=== PATIENT | male | born 1970 | race Caucasian/White ===

== ENCOUNTER 2020-09-27 17:00 | Inpatient (IN) ==
[2020-09-27 18:11] LABS: VBG HCO3 50 mEq/L (21-27); VBG PCO2 114 mmHg (41-51); VBG PH 7.25 pH Units (7.32-7.42); VBG PO2 140 mmHg (25-50)
[2020-09-27 18:14] LABS: VBG HCO3 51 mEq/L (21-27); VBG PCO2 124 mmHg (41-51); VBG PH 7.22 pH Units (7.32-7.42); VBG PO2 113 mmHg (25-50)
[2020-09-27 18:37] LABS: Hemoglobin 13.1 g/dL (12.9-16.9)
[2020-09-27 18:38] LABS: Basophils % 0.5 %; Eosinophils # 0.1 K/mcL (0.0-0.6); Eosinophils % 0.7 %; Hematocrit 45.9 % (37.5-50.1); Immature Granulocytes % 2.2 % (0-4); Lymphocytes # 1.2 K/mcL (0.6-4.6); Lymphocytes % 14.3 %; Mean Corpuscular HGB Conc 28.5 g/dL (31.6-35.5); Mean Corpuscular Hemoglobin 29.3 pg (28.0-33.3); Mean Corpuscular Volume 102.7 fL (83.0-100.0); Mean Platelet Volume 8.8 fL (9.4-12.4); Monocytes # 0.6 K/mcL (0.0-1.3); Platelet Count 208 K/mcL (140-400); Red Blood Count 4.47 M/mcL (4.19-5.50); Red Cell Distribution Width 12.7 % (11.5-14.5); Segmented Neutrophils % 75.3 %; White Blood Count 8.3 K/mcL (4.3-11.1)
[2020-09-27 18:38] LABS: Bilirubin,Urine Negative (Negative); Blood,Urine Negative (Negative); Clarity,Urine Clear (Clear); Color,Urine Light-Yellow (Yellow); Glucose,Urine (UA) Normal (Normal); Ketones,Urine Negative (Negative); Leukocyte Esterase,Urine Negative (Negative); Nitrite,Urine Negative (Negative); PH,Urine 5.5 pH Units (5.0-8.0); Protein,Urine Negative (Neg-Trace); Specific Gravity,Urine 1.015 (1.010-1.025); Urobilinogen,Urine Normal (Normal)
[2020-09-27 18:40] LABS: Neutrophils # 6.3 K/mcL (1.6-8.9)
[2020-09-27 18:48] LABS: Amphetamine Screen,Urine Negative ng/mL (Cutoff=1000); Barbiturate Screen,Urine Negative ng/mL (Cutoff=200); Benzodiazepines Screen,Urine Negative ng/mL (Cutoff=200); Cannabinoid Screen,Urine Negative ng/mL (Cutoff = 50); Cocaine Screen,Urine Negative ng/mL (Cutoff= 300); Opiate Screen,Urine Negative ng/mL (Cutoff=300); Phencyclidine Screen,Urine Negative ng/mL (Cutoff=25)
[2020-09-27 18:53] LABS: Stomatocytes 1+ (Not Present)
[2020-09-27 18:54] LABS: Hypochromasia Present (Not Present); Platelet Estimate Normal (Normal)
[2020-09-27 19:03] LABS: Alanine Aminotransferase 27 Units/L (7-52); Albumin/Globulin Ratio 1.4 (1.1-2.2); Alkaline Phosphatase 53 Units/L (34-104); Aspartate Amino Transferase 17 Units/L (13-39); BUN/Creatinine Ratio 39 (6-26); Bilirubin,Direct 0.1 mg/dL (0.0-0.2); Bilirubin,Indirect 0.1 mg/dL (0.0-1.0); Bilirubin,Total 0.2 mg/dL (0.3-1.0); Blood Urea Nitrogen 17 mg/dL (6-20); Calcium 9.2 mg/dL (8.6-10.3); Carbon Dioxide > 45 mEq/L (23-29); Chloride 95 mEq/L (98-107); Ethanol < 10 mg/dL (Less than 10); Globulin 2.8 g/dL (2.4-3.5); Glucose 151 mg/dL (70-105); Osmolality,Calculated 298 (280-300); Potassium 4.9 mEq/L (3.5-5.1); Sodium 142 mEq/L (136-145); Total Protein 6.8 g/dL (6.4-8.9); Troponin I < 0.03 ng/mL (< 0.04); Valproate 33 mcg/mL (50-100); eGFR For African Americans > 60 (> 60); eGFR For Non-African Americans > 60 (> 60)
[2020-09-27] MEDS ORDERED: Furosemide 40 MG/4 ML VIAL IVP ONE (19:08)
[2020-09-27] MEDS ORDERED: Nitroglycerin 0.4 MG TAB.SUBL SL STA (19:08)
[2020-09-27 20:33] LABS: VBG HCO3 47 mEq/L (21-27); VBG PCO2 97 mmHg (41-51); VBG PH 7.29 pH Units (7.32-7.42); VBG PO2 212 mmHg (25-50)
[2020-09-27] MEDS ORDERED: Ondansetron 4 MG/2 ML VIAL IVP PRN (21:05)
[2020-09-27] MEDS ORDERED: Naloxone 0.4 MG/ML INJ IVP PRN (21:05)
[2020-09-27] MEDS ORDERED: Acetaminophen 325 MG TABLET PO PRN (21:05)
[2020-09-28] MEDS ORDERED: Acetaminophen 325 MG TABLET PO PRN (00:45)
[2020-09-28 01:22] LABS: Prothrombin Time 11.1 Seconds (9.4-12.1)
[2020-09-28 01:33] LABS: ABG Base Excess 19 mEq/L (-2 to 3); ABG HCO3 53 mEq/L (21-27); ABG Oxygen Saturation 91 % (95-98); ABG PCO2 123 mmHg (35-45); ABG PH 7.24 pH Units (7.32-7.45); ABG PO2 78 mmHg (85-104); ABG TCO2 > 50 mEq/L (20-26)
[2020-09-28 01:38] LABS: Mean Corpuscular Volume 101.8 fL (83.0-100.0); Mean Platelet Volume 8.5 fL (9.4-12.4)
[2020-09-28 01:39] LABS: BUN/Creatinine Ratio 34 (6-26); Blood Urea Nitrogen 16 mg/dL (6-20); Calcium 9.1 mg/dL (8.6-10.3); Carbon Dioxide > 45 mEq/L (23-29); Chloride 91 mEq/L (98-107); Glucose 126 mg/dL (70-105); Magnesium 2.1 mg/dL (1.6-2.6); Osmolality,Calculated 299 (280-300); Potassium 4.6 mEq/L (3.5-5.1); Sodium 143 mEq/L (136-145); eGFR For African Americans > 60 (> 60); eGFR For Non-African Americans > 60 (> 60)
[2020-09-28 01:40] LABS: Basophils # 0.1 K/mcL (0.0-0.2); Basophils % 0.7 %; Eosinophils # 0.1 K/mcL (0.0-0.6); Eosinophils % 0.7 %; Hematocrit 45.8 % (37.5-50.1); Immature Granulocytes % 2.2 % (0-4); Lymphocytes # 1.1 K/mcL (0.6-4.6); Lymphocytes % 14.5 %; Mean Corpuscular HGB Conc 28.4 g/dL (31.6-35.5); Mean Corpuscular Hemoglobin 28.9 pg (28.0-33.3); Monocytes # 0.5 K/mcL (0.0-1.3); Monocytes % 6.3 %; Neutrophils # 5.8 K/mcL (1.6-8.9); Platelet Count 210 K/mcL (140-400); Red Cell Distribution Width 12.7 % (11.5-14.5); Segmented Neutrophils % 75.6 %; White Blood Count 7.6 K/mcL (4.3-11.1)
[2020-09-28] MEDS ORDERED: Lactulose 200 GM, Sodium Chloride IRRigation 700 ML RC ONE (01:42)
[2020-09-28 01:56] LABS: Platelet Estimate Normal (Normal); Polychromasia 1+ (Not Present)
[2020-09-28 04:16] LABS: ABG Base Excess 20 mEq/L (-2 to 3); ABG HCO3 53 mEq/L (21-27); ABG Oxygen Saturation 91 % (95-98); ABG PCO2 106 mmHg (35-45); ABG PH 7.31 pH Units (7.32-7.45); ABG PO2 75 mmHg (85-104); ABG TCO2 > 50 mEq/L (20-26)
[2020-09-28] MEDS ORDERED: Dexmedetomidine HCl 400 MCG/100 ML MLS IVC ONE (04:40)
[2020-09-28] MEDS: Dexmedetomidine HCl 400 MCG/100 ML MLS IVC SCH ×3 (04:45→11:35)
[2020-09-28 05:04] LABS: Mean Corpuscular Volume 101.8 fL (83.0-100.0); Mean Platelet Volume 8.7 fL (9.4-12.4)
[2020-09-28 05:05] LABS: Hematocrit 45.2 % (37.5-50.1); Hemoglobin 12.6 g/dL (12.9-16.9); Mean Corpuscular HGB Conc 27.9 g/dL (31.6-35.5); Mean Corpuscular Hemoglobin 28.4 pg (28.0-33.3); Platelet Count 230 K/mcL (140-400); Red Blood Count 4.44 M/mcL (4.19-5.50); Red Cell Distribution Width 12.7 % (11.5-14.5); White Blood Count 9.2 K/mcL (4.3-11.1)
[2020-09-28 05:33] LABS: Alanine Aminotransferase 28 Units/L (7-52); Albumin 3.9 g/dL (3.5-5.7); Albumin/Globulin Ratio 1.3 (1.1-2.2); Alkaline Phosphatase 52 Units/L (34-104); Aspartate Amino Transferase 16 Units/L (13-39); BUN/Creatinine Ratio 33 (6-26); Bilirubin,Indirect 0.3 mg/dL (0.0-1.0); Bilirubin,Total 0.3 mg/dL (0.3-1.0); Blood Urea Nitrogen 17 mg/dL (6-20); Calcium 9.3 mg/dL (8.6-10.3); Carbon Dioxide > 45 mEq/L (23-29); Chloride 92 mEq/L (98-107); Globulin 2.9 g/dL (2.4-3.5); Glucose 127 mg/dL (70-105); Osmolality,Calculated 305 (280-300); Potassium 4.4 mEq/L (3.5-5.1); Sodium 146 mEq/L (136-145); Total Protein 6.8 g/dL (6.4-8.9); eGFR For African Americans > 60 (> 60); eGFR For Non-African Americans > 60 (> 60)
[2020-09-28] MEDS ORDERED: 0.9 % Sodium Chloride 1,000 ML IVC SCH (06:15)
[2020-09-28 06:46] LABS: Magnesium 2.1 mg/dL (1.6-2.6)
[2020-09-28] MEDS ORDERED: Acyclovir 700 MG in D5% in Water 250 ML IVPB SCH (08:00)
[2020-09-28] MEDS: Acyclovir 700 MG in D5% in Water 250 ML IVPB SCH ×3 (08:36→23:19)
[2020-09-28] MEDS ORDERED: Lactulose Oral Soln 20 GM/30 ML UDC PO SCH (09:00)
[2020-09-28] MEDS ORDERED: Furosemide 40 MG TABLET PO SCH (09:00)
[2020-09-28] MEDS ORDERED: SALMETEROL IH SCH (09:00)
[2020-09-28] MEDS ORDERED: FLUTICASONE PROPION IH SCH (09:00)
[2020-09-28] MEDS ORDERED: Divalproex (12 HR) 250 MG TABLET PO PRN (09:00)
[2020-09-28] MEDS: clonazePAM 0.5 MG TABLET PO SCH ×2 (09:28→19:38)
[2020-09-28] MEDS: Topiramate 25 MG TABLET PO SCH (09:28)
[2020-09-28] MEDS: amLODIPine 5 MG TABLET PO SCH (09:28)
[2020-09-28] MEDS: Lactobacillus 1 EACH CAP.SPRINK PO SCH (09:28)
[2020-09-28] MEDS ORDERED: Furosemide 40 MG/4 ML VIAL IVP ONE (10:12)
[2020-09-28] MEDS ORDERED: Dextrose Gel 15 GM/37.5 ML TUBE PO PRN ×2 (14:04)
[2020-09-28] MEDS ORDERED: *HR* Dextrose 50 % in Water (Vial) 50 ML VIAL IVP PRN (14:04)
[2020-09-28] MEDS ORDERED: D5% in Water 1,000 ML IVC PRN (14:04)
[2020-09-28] MEDS ORDERED: Haloperidol Lactate 5 MG/ML VIAL ONE (14:50)
[2020-09-28] MEDS ORDERED: Haloperidol Lactate 5 MG/ML VIAL IM ONE (14:54)
[2020-09-28] MEDS ORDERED: *HR* LORazepam 2 MG/ML VIAL IVP ONE ×2 (15:14→15:20)
[2020-09-28] MEDS ORDERED: Valproic Acid INJ 500 MG in 0.9 % Sodium Chloride 100 ML IVPB ONE (15:30)
[2020-09-28] MEDS ORDERED: Artificial Tears SOLN 15 ML BOTTLE BOTH EYES PRN (15:32)
[2020-09-28] MEDS: Norepinephrine 4 MG/254 ML IV.SOLN IVC SCH (15:48)
[2020-09-28] MEDS: Midazolam HCl 50 MG/100 ML IV.SOLN IVC SCH ×2 (15:48→22:10)
[2020-09-28] MEDS ORDERED: *HR* Propofol 200 MG/20 ML VIAL IVP ONE (16:09)
[2020-09-28] MEDS ORDERED: *HR* Midazolam HCl 5 MG/5 ML VIAL IVP ONE (16:09)
[2020-09-28] MEDS ORDERED: *HR* Rocuronium Bromide 50 MG/5 ML VIAL ONE (16:09)
[2020-09-28] MEDS ORDERED: *HR* Succinylcholine 200 MG/10 ML VIAL IVP ONE (16:09)
[2020-09-28] MEDS ORDERED: Lidocaine -MPF 2% 2 ML VIAL ONE (16:09)
[2020-09-28] MEDS: FentaNYL (PF) 1,000 MCG/100 ML IV.SOLN IVC SCH ×2 (16:22→20:52)
[2020-09-28] MEDS: Artificial Tears SOLN 15 ML BOTTLE BOTH EYES SCH ×3 (16:24→23:17)
[2020-09-28] MEDS: Cefepime HCl 2,000 MG in Water for inj. (sterile) 20 ML IVP SCH ×2 (16:51→23:17)
[2020-09-28] MEDS: Doxycycline 100 MG in 0.9 % Sodium Chloride Mini Bag 100 ML IVPB SCH (16:52)
[2020-09-28 17:06] LABS: ABG Base Excess 27 mEq/L (-2 to 3); ABG HCO3 62 mEq/L (21-27); ABG Oxygen Saturation 83 % (95-98); ABG PCO2 119 mmHg (35-45); ABG PH 7.33 pH Units (7.32-7.45); ABG PO2 58 mmHg (85-104); ABG TCO2 > 50 mEq/L (20-26); Blood Gas Modality ASSIST CONTROL; Blood Gas VT 500 cc
[2020-09-28] MEDS ORDERED: Nystatin SUSP 5 ML UD.LIQ PO PRN (17:22)
[2020-09-28] MEDS: Pantoprazole 40 MG VIAL IVP SCH (17:50)
[2020-09-28] MEDS: Insulin LISPRO 300 UNITS/3 ML VIAL SUBQ SCH ×2 (17:50→23:20)
[2020-09-28] MEDS: Valproic Acid Oral Soln 250 MG/5 ML UDC GTUBE SCH (19:38)
[2020-09-28] MEDS: Chlorhexidine Rinse 15 ML MOUTHWASH MM SCH (19:38)
[2020-09-28] MEDS: Budesonide/Formoterol 160/4.5 1 PUFF INH IH SCH (20:02)
[2020-09-28 20:54] LABS: ABG Base Excess 26 mEq/L (-2 to 3); ABG HCO3 52 mEq/L (21-27); ABG Oxygen Saturation 99 % (95-98); ABG PCO2 56 mmHg (35-45); ABG PH 7.58 pH Units (7.32-7.45); ABG PO2 134 mmHg (85-104); ABG TCO2 > 50 mEq/L (20-26); Blood Gas Modality ASSIST CONTROL; Blood Gas VT 500 cc
[2020-09-28] MEDS ORDERED: Divalproex (12 HR) 250 MG TABLET PO SCH (21:00)
[2020-09-28] MEDS: *HR* Heparin 5,000 UNIT/ML VIAL SQ SCH (21:10)
[2020-09-29] MEDS: FentaNYL (PF) 1,000 MCG/100 ML IV.SOLN IVC SCH ×3 (02:37→15:19)
[2020-09-29 04:07] LABS: Basophils % 0.4 %; Eosinophils # 0.1 K/mcL (0.0-0.6); Hemoglobin 12.2 g/dL (12.9-16.9); Immature Granulocytes % 1.1 % (0-4); Lymphocytes # 1.5 K/mcL (0.6-4.6); Lymphocytes % 16.8 %; Mean Corpuscular HGB Conc 29.8 g/dL (31.6-35.5); Mean Corpuscular Hemoglobin 29.4 pg (28.0-33.3); Mean Corpuscular Volume 98.8 fL (83.0-100.0); Monocytes # 0.8 K/mcL (0.0-1.3); Monocytes % 8.4 %; Neutrophils # 6.6 K/mcL (1.6-8.9); Platelet Count 238 K/mcL (140-400); Red Blood Count 4.15 M/mcL (4.19-5.50); Red Cell Distribution Width 12.9 % (11.5-14.5); Segmented Neutrophils % 72.3 %; White Blood Count 9.1 K/mcL (4.3-11.1)
[2020-09-29 04:22] LABS: VBG Ionized Calcium 1.03 mmol/L (1.15-1.35)
[2020-09-29] MEDS: Artificial Tears SOLN 15 ML BOTTLE BOTH EYES SCH ×5 (04:29→19:19)
[2020-09-29 04:46] LABS: ABG Base Excess 28 mEq/L (-2 to 3); ABG HCO3 57 mEq/L (21-27); ABG Oxygen Saturation 92 % (95-98); ABG PCO2 67 mmHg (35-45); ABG PH 7.54 pH Units (7.32-7.45); ABG PO2 60 mmHg (85-104); ABG TCO2 > 50 mEq/L (20-26); Blood Gas Modality ASSIST CONTROL; Blood Gas VT 500 cc
[2020-09-29 05:57] LABS: BUN/Creatinine Ratio 25 (6-26); Blood Urea Nitrogen 18 mg/dL (6-20); Calcium 9.2 mg/dL (8.6-10.3); Carbon Dioxide > 45 mEq/L (23-29); Chloride 89 mEq/L (98-107); Glucose 107 mg/dL (70-105); Magnesium 1.8 mg/dL (1.6-2.6); Osmolality,Calculated 292 (280-300); Phosphorous < 1.0 mg/dL (2.7-4.5); Potassium 3.9 mEq/L (3.5-5.1); Sodium 140 mEq/L (136-145); eGFR For African Americans > 60 (> 60); eGFR For Non-African Americans > 60 (> 60)
[2020-09-29] MEDS: Doxycycline 100 MG in 0.9 % Sodium Chloride Mini Bag 100 ML IVPB SCH ×2 (05:58→16:31)
[2020-09-29] MEDS: *HR* Heparin 5,000 UNIT/ML VIAL SQ SCH ×3 (05:58→22:51)
[2020-09-29] MEDS: Insulin LISPRO 300 UNITS/3 ML VIAL SUBQ SCH ×3 (06:07→18:34)
[2020-09-29] MEDS ORDERED: Calcium Gluconate 1gm/50mL 1 GM/50 ML BAG IVPB ONE ×2 (06:08→15:49)
[2020-09-29] MEDS: Midazolam HCl 50 MG/100 ML IV.SOLN IVC SCH ×3 (07:00→22:51)
[2020-09-29] MEDS ORDERED: acetaZOLAMIDE 500 MG in Water for inj. (sterile) 5 ML IVP ONE (07:05)
[2020-09-29] MEDS ORDERED: Potassium Phosphate 44 MEQ in 0.9 % Sodium Chloride 250 ML IVPB ONE (07:16)
[2020-09-29] MEDS ORDERED: Vancomycin 2,000 MG/520 ML IV.SOLN IVPB ONE (07:23)
[2020-09-29] MEDS: Budesonide/Formoterol 160/4.5 1 PUFF INH IH SCH ×2 (07:55→19:50)
[2020-09-29] MEDS: Cefepime HCl 2,000 MG in Water for inj. (sterile) 20 ML IVP SCH ×2 (08:37→16:31)
[2020-09-29] MEDS: Lactobacillus 1 EACH CAP.SPRINK PO SCH (08:38)
[2020-09-29] MEDS: amLODIPine 5 MG TABLET PO SCH (08:38)
[2020-09-29] MEDS: Chlorhexidine Rinse 15 ML MOUTHWASH MM SCH ×2 (08:38→19:19)
[2020-09-29] MEDS: clonazePAM 0.5 MG TABLET PO SCH ×2 (08:38→19:18)
[2020-09-29] MEDS: Valproic Acid Oral Soln 250 MG/5 ML UDC GTUBE SCH ×2 (08:39→19:18)
[2020-09-29] MEDS: Pantoprazole 40 MG VIAL IVP SCH (08:39)
[2020-09-29] MEDS: Topiramate 25 MG TABLET PO SCH (08:46)
[2020-09-29] MEDS: Acyclovir 700 MG in D5% in Water 250 ML IVPB SCH ×2 (08:46→16:30)
[2020-09-29 14:40] LABS: VBG Ionized Calcium 1.08 mmol/L (1.15-1.35)
[2020-09-29 15:06] LABS: BUN/Creatinine Ratio 24 (6-26); Blood Urea Nitrogen 16 mg/dL (6-20); Calcium 8.7 mg/dL (8.6-10.3); Carbon Dioxide 43 mEq/L (23-29); Chloride 92 mEq/L (98-107); Glucose 110 mg/dL (70-105); Magnesium 1.9 mg/dL (1.6-2.6); Osmolality,Calculated 290 (280-300); Phosphorous 3.3 mg/dL (2.7-4.5); Potassium 3.2 mEq/L (3.5-5.1); Sodium 139 mEq/L (136-145); eGFR For African Americans > 60 (> 60); eGFR For Non-African Americans > 60 (> 60)
[2020-09-29] MEDS ORDERED: Potassium Chloride Elixir 20 MEQ/15 ML UDC PO ONE (15:50)
[2020-09-29] MEDS: Vancomycin 2,000 MG/520 ML IV.SOLN IVPB SCH (19:20)
[2020-09-29] MEDS: Thiamine (B-1) 100 MG in 0.9 % Sodium Chloride 50 ML IVPB SCH (19:21)
[2020-09-29] MEDS: FentaNYL (PF) 2,500 MCG/50 ML IV.SOLN IVC SCH (20:15)
[2020-09-30] MEDS: Acyclovir 700 MG in D5% in Water 250 ML IVPB SCH ×4 (00:39→23:17)
[2020-09-30] MEDS: Cefepime HCl 2,000 MG in Water for inj. (sterile) 20 ML IVP SCH ×4 (00:39→23:20)
[2020-09-30] MEDS: Artificial Tears SOLN 15 ML BOTTLE BOTH EYES SCH ×7 (00:39→23:23)
[2020-09-30] MEDS: Insulin LISPRO 300 UNITS/3 ML VIAL SUBQ SCH ×5 (00:40→23:56)
[2020-09-30 04:03] LABS: VBG Ionized Calcium 1.05 mmol/L (1.15-1.35)
[2020-09-30 04:08] LABS: Hematocrit 41.4 % (37.5-50.1); Hemoglobin 12.4 g/dL (12.9-16.9); Mean Corpuscular Hemoglobin 28.4 pg (28.0-33.3); Mean Platelet Volume 8.7 fL (9.4-12.4); Platelet Count 213 K/mcL (140-400); Red Blood Count 4.36 M/mcL (4.19-5.50); Red Cell Distribution Width 13.3 % (11.5-14.5); White Blood Count 9.1 K/mcL (4.3-11.1)
[2020-09-30 04:09] LABS: ABG Base Excess 11 mEq/L (-2 to 3); ABG HCO3 40 mEq/L (21-27); ABG Oxygen Saturation 92 % (95-98); ABG PCO2 70 mmHg (35-45); ABG PH 7.37 pH Units (7.32-7.45); ABG PO2 71 mmHg (85-104); ABG TCO2 43 mEq/L (20-26); Blood Gas Modality ASSIST CONTROL; Blood Gas VT 500 cc
[2020-09-30 04:28] LABS: BUN/Creatinine Ratio 21 (6-26); Blood Urea Nitrogen 14 mg/dL (6-20); Calcium 8.6 mg/dL (8.6-10.3); Carbon Dioxide 39 mEq/L (23-29); Chloride 94 mEq/L (98-107); Glucose 127 mg/dL (70-105); Magnesium 2.1 mg/dL (1.6-2.6); Osmolality,Calculated 284 (280-300); Phosphorous 3.2 mg/dL (2.7-4.5); Potassium 3.6 mEq/L (3.5-5.1); Sodium 136 mEq/L (136-145); eGFR For African Americans > 60 (> 60); eGFR For Non-African Americans > 60 (> 60)
[2020-09-30] MEDS: FentaNYL (PF) 2,500 MCG/50 ML IV.SOLN IVC SCH ×2 (04:44→17:12)
[2020-09-30] MEDS: *HR* Heparin 5,000 UNIT/ML VIAL SQ SCH ×3 (05:53→20:25)
[2020-09-30] MEDS: Doxycycline 100 MG in 0.9 % Sodium Chloride Mini Bag 100 ML IVPB SCH ×2 (05:53→16:54)
[2020-09-30] MEDS: Potassium Chloride 40 MEQ/200 ML BAG IVPB PRN (05:53)
[2020-09-30] MEDS: Calcium Gluconate 1gm/50mL 1 GM/50 ML BAG IVPB PRN (05:53)
[2020-09-30] MEDS: Budesonide/Formoterol 160/4.5 1 PUFF INH IH SCH ×2 (08:02→19:38)
[2020-09-30] MEDS: Midazolam HCl 50 MG/100 ML IV.SOLN IVC SCH ×2 (08:15→21:27)
[2020-09-30] MEDS: Pantoprazole 40 MG VIAL IVP SCH (08:38)
[2020-09-30] MEDS: Chlorhexidine Rinse 15 ML MOUTHWASH MM SCH ×2 (08:39→20:25)
[2020-09-30] MEDS: Valproic Acid Oral Soln 250 MG/5 ML UDC GTUBE SCH ×2 (08:39→20:25)
[2020-09-30] MEDS: Topiramate 25 MG TABLET PO SCH (08:39)
[2020-09-30] MEDS: amLODIPine 5 MG TABLET PO SCH (08:39)
[2020-09-30] MEDS: clonazePAM 0.5 MG TABLET PO SCH ×2 (08:39→20:24)
[2020-09-30] MEDS: Lactobacillus 1 EACH CAP.SPRINK PO SCH (08:39)
[2020-09-30] MEDS: Vancomycin 2,000 MG/520 ML IV.SOLN IVPB SCH (08:50)
[2020-09-30] MEDS: Thiamine (B-1) 100 MG in 0.9 % Sodium Chloride 50 ML IVPB SCH ×2 (08:51→21:00)
[2020-09-30] MEDS: Vancomycin 1,250 MG/262.5 ML IV.SOLN IVPB SCH (21:22)
[2020-09-30] MEDS: Norepinephrine 4 MG/254 ML IV.SOLN IVC SCH ×2 (23:52→23:54)
[2020-09-30] MEDS: Dexmedetomidine HCl 400 MCG/100 ML MLS IVC SCH ×2 (23:53→23:54)
[2020-10-01] MEDS: Artificial Tears SOLN 15 ML BOTTLE BOTH EYES SCH ×5 (03:23→20:35)
[2020-10-01 03:56] LABS: BUN/Creatinine Ratio 33 (6-26); Blood Urea Nitrogen 17 mg/dL (6-20); Calcium 8.8 mg/dL (8.6-10.3); Carbon Dioxide 41 mEq/L (23-29); Chloride 94 mEq/L (98-107); Glucose 140 mg/dL (70-105); Osmolality,Calculated 288 (280-300); Potassium 4.2 mEq/L (3.5-5.1); Sodium 137 mEq/L (136-145); eGFR For African Americans > 60 (> 60); eGFR For Non-African Americans > 60 (> 60)
[2020-10-01 04:00] LABS: Red Cell Distribution Width 13.2 % (11.5-14.5)
[2020-10-01 04:02] LABS: Basophils % 0.4 %; Eosinophils # 0.1 K/mcL (0.0-0.6); Eosinophils % 1.3 %; Hemoglobin 12.3 g/dL (12.9-16.9); Immature Granulocytes % 0.6 % (0-4); Immature Platelets 2.2 % (1.1-6.1); Lymphocytes # 0.7 K/mcL (0.6-4.6); Lymphocytes % 6.8 %; Mean Corpuscular Hemoglobin 28.5 pg (28.0-33.3); Mean Corpuscular Volume 95.1 fL (83.0-100.0); Mean Platelet Volume 9.2 fL (9.4-12.4); Monocytes # 0.4 K/mcL (0.0-1.3); Monocytes % 4.3 %; Neutrophils # 8.6 K/mcL (1.6-8.9); Platelet Count 217 K/mcL (140-400); Red Blood Count 4.31 M/mcL (4.19-5.50); Segmented Neutrophils % 86.6 %; White Blood Count 9.9 K/mcL (4.3-11.1)
[2020-10-01 04:28] LABS: Platelet Clumps Few (Not Present); Platelet Estimate Normal (Normal)
[2020-10-01 05:05] LABS: ABG Base Excess 9 mEq/L (-2 to 3); ABG HCO3 38 mEq/L (21-27); ABG Oxygen Saturation 93 % (95-98); ABG PCO2 75 mmHg (35-45); ABG PH 7.32 pH Units (7.32-7.45); ABG PO2 77 mmHg (85-104); ABG TCO2 41 mEq/L (20-26); Blood Gas VT 500 cc
[2020-10-01] MEDS: Vancomycin 1,250 MG/262.5 ML IV.SOLN IVPB SCH ×3 (05:46→20:36)
[2020-10-01] MEDS: Doxycycline 100 MG in 0.9 % Sodium Chloride Mini Bag 100 ML IVPB SCH ×2 (05:47→18:19)
[2020-10-01] MEDS: *HR* Heparin 5,000 UNIT/ML VIAL SQ SCH ×3 (05:47→22:04)
[2020-10-01] MEDS: Insulin LISPRO 300 UNITS/3 ML VIAL SUBQ SCH ×3 (05:48→18:24)
[2020-10-01] MEDS: Budesonide/Formoterol 160/4.5 1 PUFF INH IH SCH ×2 (07:44→19:58)
[2020-10-01] MEDS: Thiamine (B-1) 100 MG in 0.9 % Sodium Chloride 50 ML IVPB SCH ×2 (08:09→20:35)
[2020-10-01] MEDS: Acyclovir 700 MG in D5% in Water 250 ML IVPB SCH ×2 (08:11→16:48)
[2020-10-01] MEDS: Cefepime HCl 2,000 MG in Water for inj. (sterile) 20 ML IVP SCH ×2 (08:17→16:53)
[2020-10-01] MEDS: clonazePAM 0.5 MG TABLET PO SCH ×2 (08:29→20:35)
[2020-10-01] MEDS: Lactobacillus 1 EACH CAP.SPRINK PO SCH (08:29)
[2020-10-01] MEDS: Chlorhexidine Rinse 15 ML MOUTHWASH MM SCH ×2 (08:29→20:35)
[2020-10-01] MEDS: Valproic Acid Oral Soln 250 MG/5 ML UDC GTUBE SCH ×2 (08:29→20:35)
[2020-10-01] MEDS: Topiramate 25 MG TABLET PO SCH (08:30)
[2020-10-01] MEDS: amLODIPine 5 MG TABLET PO SCH (08:30)
[2020-10-01] MEDS: Pantoprazole 40 MG VIAL IVP SCH (08:31)
[2020-10-01 09:31] LABS: Albumin 3.3 g/dL (3.5-5.7); Albumin/Globulin Ratio 1.1 (1.1-2.2); Bilirubin,Indirect 0.4 mg/dL (0.0-1.0); Bilirubin,Total 0.4 mg/dL (0.3-1.0); Globulin 2.9 g/dL (2.4-3.5); Total Protein 6.2 g/dL (6.4-8.9)
[2020-10-01] MEDS ORDERED: Furosemide 40 MG/4 ML VIAL IVP ONE (11:16)
[2020-10-01] MEDS: Dexmedetomidine HCl 400 MCG/100 ML MLS IVC SCH ×2 (11:29→18:43)
[2020-10-01] MEDS: Norepinephrine 4 MG/254 ML IV.SOLN IVC SCH (16:47)
[2020-10-01] MEDS: Docusate Oral Soln 100 MG/10 ML UDC GTUBE SCH (20:35)
[2020-10-01] MEDS: FentaNYL (PF) 2,500 MCG/50 ML IV.SOLN IVC SCH (20:36)
[2020-10-02] MEDS: Artificial Tears SOLN 15 ML BOTTLE BOTH EYES SCH ×7 (00:05→23:59)
[2020-10-02] MEDS: Cefepime HCl 2,000 MG in Water for inj. (sterile) 20 ML IVP SCH ×4 (00:05→23:56)
[2020-10-02] MEDS: Insulin LISPRO 300 UNITS/3 ML VIAL SUBQ SCH ×5 (00:06→23:58)
[2020-10-02] MEDS: Acyclovir 700 MG in D5% in Water 250 ML IVPB SCH ×3 (00:10→15:48)
[2020-10-02 03:41] LABS: VBG Ionized Calcium 1.12 mmol/L (1.15-1.35)
[2020-10-02 03:44] LABS: Basophils % 0.5 %; Eosinophils # 0.4 K/mcL (0.0-0.6); Eosinophils % 5.6 %; Hematocrit 38.7 % (37.5-50.1); Hemoglobin 11.4 g/dL (12.9-16.9); Immature Granulocytes % 0.8 % (0-4); Mean Corpuscular HGB Conc 29.5 g/dL (31.6-35.5); Mean Corpuscular Hemoglobin 28.6 pg (28.0-33.3); Mean Platelet Volume 9.3 fL (9.4-12.4); Monocytes # 0.3 K/mcL (0.0-1.3); Monocytes % 5.2 %; Neutrophils # 4.8 K/mcL (1.6-8.9); Platelet Count 194 K/mcL (140-400); Red Blood Count 3.99 M/mcL (4.19-5.50); Red Cell Distribution Width 13.1 % (11.5-14.5); Segmented Neutrophils % 72.9 %; White Blood Count 6.6 K/mcL (4.3-11.1)
[2020-10-02 03:59] LABS: Magnesium 1.9 mg/dL (1.6-2.6); Phosphorous 3.1 mg/dL (2.7-4.5)
[2020-10-02 04:37] LABS: ABG Base Excess 13 mEq/L (-2 to 3); ABG HCO3 43 mEq/L (21-27); ABG Oxygen Saturation 90 % (95-98); ABG PCO2 87 mmHg (35-45); ABG PO2 70 mmHg (85-104); ABG TCO2 46 mEq/L (20-26); Blood Gas Modality ASSIST CONTROL; Blood Gas VT 500 cc
[2020-10-02 05:06] LABS: BUN/Creatinine Ratio 33 (6-26); Blood Urea Nitrogen 16 mg/dL (6-20); Calcium 8.6 mg/dL (8.6-10.3); Carbon Dioxide 39 mEq/L (23-29); Chloride 96 mEq/L (98-107); Glucose 150 mg/dL (70-105); Osmolality,Calculated 292 (280-300); Potassium 3.6 mEq/L (3.5-5.1); Sodium 139 mEq/L (136-145); eGFR For African Americans > 60 (> 60); eGFR For Non-African Americans > 60 (> 60)
[2020-10-02] MEDS: Vancomycin 1,250 MG/262.5 ML IV.SOLN IVPB SCH ×3 (05:07→20:42)
[2020-10-02] MEDS: *HR* Heparin 5,000 UNIT/ML VIAL SQ SCH ×3 (05:08→21:32)
[2020-10-02] MEDS: Doxycycline 100 MG in 0.9 % Sodium Chloride Mini Bag 100 ML IVPB SCH ×2 (05:08→17:25)
[2020-10-02] MEDS: Budesonide/Formoterol 160/4.5 1 PUFF INH IH SCH ×2 (07:15→21:02)
[2020-10-02] MEDS: Potassium Chloride 40 MEQ/200 ML BAG IVPB PRN (07:46)
[2020-10-02] MEDS: Chlorhexidine Rinse 15 ML MOUTHWASH MM SCH ×2 (08:22→20:41)
[2020-10-02] MEDS: Docusate Oral Soln 100 MG/10 ML UDC GTUBE SCH ×2 (08:22→20:41)
[2020-10-02] MEDS: Pantoprazole 40 MG VIAL IVP SCH (08:23)
[2020-10-02] MEDS: Lactobacillus 1 EACH CAP.SPRINK PO SCH (08:23)
[2020-10-02] MEDS: amLODIPine 5 MG TABLET PO SCH (08:23)
[2020-10-02] MEDS: clonazePAM 0.5 MG TABLET PO SCH ×2 (08:23→20:41)
[2020-10-02] MEDS: Valproic Acid Oral Soln 250 MG/5 ML UDC GTUBE SCH ×2 (08:33→20:41)
[2020-10-02] MEDS: Topiramate 25 MG TABLET PO SCH (08:33)
[2020-10-02] MEDS: Thiamine (B-1) 100 MG in 0.9 % Sodium Chloride 50 ML IVPB SCH ×2 (08:33→20:41)
[2020-10-02] MEDS ORDERED: Furosemide 40 MG/4 ML VIAL IVP ONE (09:19)
[2020-10-02] MEDS: FentaNYL (PF) 2,500 MCG/50 ML IV.SOLN IVC SCH (12:35)
[2020-10-02] MEDS: Norepinephrine 4 MG/254 ML IV.SOLN IVC SCH (19:25)
[2020-10-02] MEDS: Dexmedetomidine HCl 400 MCG/100 ML MLS IVC SCH ×2 (19:25→20:41)
[2020-10-03] MEDS: FentaNYL (PF) 2,500 MCG/50 ML IV.SOLN IVC SCH ×2 (00:43→17:00)
[2020-10-03] MEDS: Acyclovir 700 MG in D5% in Water 250 ML IVPB SCH ×4 (01:53→23:03)
[2020-10-03] MEDS: Artificial Tears SOLN 15 ML BOTTLE BOTH EYES SCH ×6 (03:34→23:02)
[2020-10-03] MEDS: Vancomycin 1,250 MG/262.5 ML IV.SOLN IVPB SCH (04:10)
[2020-10-03 04:47] LABS: ABG Base Excess 11 mEq/L (-2 to 3); ABG HCO3 39 mEq/L (21-27); ABG Oxygen Saturation 94 % (95-98); ABG PCO2 68 mmHg (35-45); ABG PH 7.37 pH Units (7.32-7.45); ABG PO2 76 mmHg (85-104); ABG TCO2 41 mEq/L (20-26); Blood Gas Modality ASSIST CONTROL; Blood Gas VT 400 cc
[2020-10-03 05:07] LABS: Hematocrit 38.7 % (37.5-50.1); Immature Granulocytes % 0.9 % (0-4); Lymphocytes % 20.8 %; Mean Corpuscular Hemoglobin 28.7 pg (28.0-33.3); Mean Corpuscular Volume 92.6 fL (83.0-100.0); Mean Platelet Volume 9.3 fL (9.4-12.4); Monocytes % 7.6 %; Platelet Count 219 K/mcL (140-400); Red Blood Count 4.18 M/mcL (4.19-5.50); Red Cell Distribution Width 13.5 % (11.5-14.5); Segmented Neutrophils % 65.8 %; White Blood Count 8.1 K/mcL (4.3-11.1)
[2020-10-03 05:08] LABS: Basophils # 0.1 K/mcL (0.0-0.2); Basophils % 0.6 %; Eosinophils # 0.4 K/mcL (0.0-0.6); Eosinophils % 4.3 %; Lymphocytes # 1.7 K/mcL (0.6-4.6); Monocytes # 0.6 K/mcL (0.0-1.3); Neutrophils # 5.4 K/mcL (1.6-8.9)
[2020-10-03 05:10] LABS: VBG Ionized Calcium 1.09 mmol/L (1.15-1.35)
[2020-10-03] MEDS: Doxycycline 100 MG in 0.9 % Sodium Chloride Mini Bag 100 ML IVPB SCH (05:26)
[2020-10-03] MEDS: *HR* Heparin 5,000 UNIT/ML VIAL SQ SCH ×3 (05:26→21:06)
[2020-10-03 05:31] LABS: BUN/Creatinine Ratio 41 (6-26); Blood Urea Nitrogen 20 mg/dL (6-20); Carbon Dioxide 39 mEq/L (23-29); Chloride 95 mEq/L (98-107); Glucose 147 mg/dL (70-105); Magnesium 1.8 mg/dL (1.6-2.6); Osmolality,Calculated 291 (280-300); Phosphorous 2.5 mg/dL (2.7-4.5); Potassium 3.3 mEq/L (3.5-5.1); Sodium 138 mEq/L (136-145); eGFR For African Americans > 60 (> 60); eGFR For Non-African Americans > 60 (> 60)
[2020-10-03] MEDS: Insulin LISPRO 300 UNITS/3 ML VIAL SUBQ SCH ×4 (06:05→23:02)
[2020-10-03] MEDS ORDERED: Furosemide 40 MG/4 ML VIAL IVP ONE ×2 (07:41→20:00)
[2020-10-03] MEDS: Budesonide/Formoterol 160/4.5 1 PUFF INH IH SCH ×2 (07:44→19:41)
[2020-10-03] MEDS: Chlorhexidine Rinse 15 ML MOUTHWASH MM SCH ×2 (07:57→20:14)
[2020-10-03] MEDS: Pantoprazole 40 MG VIAL IVP SCH (07:57)
[2020-10-03] MEDS: Valproic Acid Oral Soln 250 MG/5 ML UDC GTUBE SCH ×2 (07:57→20:17)
[2020-10-03] MEDS: Docusate Oral Soln 100 MG/10 ML UDC GTUBE SCH ×2 (07:57→20:16)
[2020-10-03] MEDS: Potassium Chloride 40 MEQ/200 ML BAG IVPB PRN (07:57)
[2020-10-03] MEDS: Cefepime HCl 2,000 MG in Water for inj. (sterile) 20 ML IVP SCH ×3 (07:58→23:02)
[2020-10-03] MEDS: amLODIPine 5 MG TABLET PO SCH (07:58)
[2020-10-03] MEDS: clonazePAM 0.5 MG TABLET PO SCH ×2 (07:58→20:17)
[2020-10-03] MEDS: Lactobacillus 1 EACH CAP.SPRINK PO SCH (07:59)
[2020-10-03] MEDS: Topiramate 25 MG TABLET PO SCH (07:59)
[2020-10-03] MEDS: Thiamine (B-1) 100 MG in 0.9 % Sodium Chloride 50 ML IVPB SCH ×2 (08:03→20:17)
[2020-10-03] MEDS: Dexmedetomidine HCl 400 MCG/100 ML MLS IVC SCH ×3 (08:04→14:46)
[2020-10-03] MEDS: Calcium Gluconate 1gm/50mL 1 GM/50 ML BAG IVPB PRN (09:49)
[2020-10-03] MEDS: Midazolam HCl 50 MG/100 ML IV.SOLN IVC SCH (15:53)
[2020-10-03] MEDS: Norepinephrine 4 MG/254 ML IV.SOLN IVC SCH (15:53)
[2020-10-03 16:54] LABS: BUN/Creatinine Ratio 38 (6-26); Blood Urea Nitrogen 20 mg/dL (6-20); Calcium 8.9 mg/dL (8.6-10.3); Carbon Dioxide 37 mEq/L (23-29); Chloride 97 mEq/L (98-107); Glucose 146 mg/dL (70-105); Magnesium 2.2 mg/dL (1.6-2.6); Osmolality,Calculated 293 (280-300); Phosphorous 3.4 mg/dL (2.7-4.5); Potassium 3.6 mEq/L (3.5-5.1); Sodium 139 mEq/L (136-145); eGFR For African Americans > 60 (> 60); eGFR For Non-African Americans > 60 (> 60)
[2020-10-03] MEDS ORDERED: Potassium Chloride Elixir 20 MEQ/15 ML UDC GTUBE ONE (20:00)
[2020-10-04] MEDS: Dexmedetomidine HCl 400 MCG/100 ML MLS IVC SCH ×4 (00:17→23:34)
[2020-10-04 03:51] LABS: ABG Base Excess 9 mEq/L (-2 to 3); ABG HCO3 37 mEq/L (21-27); ABG Oxygen Saturation 94 % (95-98); ABG PCO2 66 mmHg (35-45); ABG PH 7.36 pH Units (7.32-7.45); ABG PO2 76 mmHg (85-104); ABG TCO2 39 mEq/L (20-26); Blood Gas Modality ASSIST CONTROL; Blood Gas VT 500 cc
[2020-10-04 04:15] LABS: VBG Ionized Calcium 1.04 mmol/L (1.15-1.35)
[2020-10-04 04:17] LABS: Basophils # 0.1 K/mcL (0.0-0.2); Basophils % 0.9 %; Eosinophils # 0.3 K/mcL (0.0-0.6); Hematocrit 38.2 % (37.5-50.1); Hemoglobin 11.9 g/dL (12.9-16.9); Immature Granulocytes % 1.2 % (0-4); Lymphocytes # 1.4 K/mcL (0.6-4.6); Lymphocytes % 19.8 %; Mean Corpuscular HGB Conc 31.2 g/dL (31.6-35.5); Mean Corpuscular Hemoglobin 29.1 pg (28.0-33.3); Mean Corpuscular Volume 93.4 fL (83.0-100.0); Mean Platelet Volume 9.6 fL (9.4-12.4); Monocytes # 0.6 K/mcL (0.0-1.3); Monocytes % 9.3 %; Neutrophils # 4.4 K/mcL (1.6-8.9); Platelet Count 209 K/mcL (140-400); Red Blood Count 4.09 M/mcL (4.19-5.50); Red Cell Distribution Width 13.2 % (11.5-14.5); Segmented Neutrophils % 63.8 %; White Blood Count 6.9 K/mcL (4.3-11.1)
[2020-10-04] MEDS: Artificial Tears SOLN 15 ML BOTTLE BOTH EYES SCH ×7 (04:26→23:32)
[2020-10-04 04:30] LABS: BUN/Creatinine Ratio 49 (6-26); Blood Urea Nitrogen 25 mg/dL (6-20); Calcium 8.8 mg/dL (8.6-10.3); Carbon Dioxide 35 mEq/L (23-29); Chloride 97 mEq/L (98-107); Glucose 127 mg/dL (70-105); Osmolality,Calculated 294 (280-300); Phosphorous 4.1 mg/dL (2.7-4.5); Potassium 3.5 mEq/L (3.5-5.1); Sodium 139 mEq/L (136-145); eGFR For African Americans > 60 (> 60); eGFR For Non-African Americans > 60 (> 60)
[2020-10-04] MEDS: Potassium Chloride 40 MEQ/200 ML BAG IVPB PRN (04:54)
[2020-10-04] MEDS: Calcium Gluconate 1gm/50mL 1 GM/50 ML BAG IVPB PRN ×2 (04:55→17:56)
[2020-10-04] MEDS: Insulin LISPRO 300 UNITS/3 ML VIAL SUBQ SCH ×5 (05:01→23:32)
[2020-10-04] MEDS: *HR* Heparin 5,000 UNIT/ML VIAL SQ SCH ×3 (05:01→21:46)
[2020-10-04] MEDS: Budesonide/Formoterol 160/4.5 1 PUFF INH IH SCH ×2 (07:32→19:51)
[2020-10-04] MEDS ORDERED: Potassium Chloride Elixir 20 MEQ/15 ML UDC GTUBE ONE (07:34)
[2020-10-04] MEDS ORDERED: Furosemide 40 MG/4 ML VIAL IVP ONE (07:34)
[2020-10-04] MEDS: Valproic Acid Oral Soln 250 MG/5 ML UDC GTUBE SCH ×2 (08:43→19:57)
[2020-10-04] MEDS: Chlorhexidine Rinse 15 ML MOUTHWASH MM SCH ×2 (08:43→19:57)
[2020-10-04] MEDS: Cefepime HCl 2,000 MG in Water for inj. (sterile) 20 ML IVP SCH ×3 (08:43→23:32)
[2020-10-04] MEDS: clonazePAM 0.5 MG TABLET PO SCH ×2 (08:44→19:57)
[2020-10-04] MEDS: amLODIPine 5 MG TABLET PO SCH (08:44)
[2020-10-04] MEDS: Lactobacillus 1 EACH CAP.SPRINK PO SCH (08:44)
[2020-10-04] MEDS: Docusate Oral Soln 100 MG/10 ML UDC GTUBE SCH ×2 (08:44→19:57)
[2020-10-04] MEDS: Topiramate 25 MG TABLET PO SCH (08:44)
[2020-10-04] MEDS: Pantoprazole 40 MG VIAL IVP SCH (08:44)
[2020-10-04] MEDS: Acyclovir 700 MG in D5% in Water 250 ML IVPB SCH ×3 (08:47→23:33)
[2020-10-04] MEDS: Thiamine (B-1) 100 MG in 0.9 % Sodium Chloride 50 ML IVPB SCH ×2 (08:47→19:57)
[2020-10-04] MEDS: FentaNYL (PF) 2,500 MCG/50 ML IV.SOLN IVC SCH (09:43)
[2020-10-04] MEDS: Midazolam HCl 50 MG/100 ML IV.SOLN IVC SCH (14:52)
[2020-10-04] MEDS: Norepinephrine 4 MG/254 ML IV.SOLN IVC SCH (14:52)
[2020-10-04] MEDS ORDERED: *HR* Propofol 200 MG/20 ML VIAL IVP ONE (16:33)
[2020-10-04] MEDS ORDERED: *HR* Succinylcholine 200 MG/10 ML VIAL IVP ONE (16:33)
[2020-10-04 17:49] LABS: VBG Ionized Calcium 1.05 mmol/L (1.15-1.35)
[2020-10-04 18:03] LABS: BUN/Creatinine Ratio 50 (6-26); Blood Urea Nitrogen 22 mg/dL (6-20); Calcium 8.6 mg/dL (8.6-10.3); Carbon Dioxide 38 mEq/L (23-29); Chloride 94 mEq/L (98-107); Glucose 156 mg/dL (70-105); Magnesium 1.9 mg/dL (1.6-2.6); Osmolality,Calculated 289 (280-300); Potassium 4.3 mEq/L (3.5-5.1); Sodium 136 mEq/L (136-145); eGFR For African Americans > 60 (> 60); eGFR For Non-African Americans > 60 (> 60)
[2020-10-04] MEDS: Albuterol 2.5 MG/3 ML NEBULIZER IH PRN (22:12)
[2020-10-05] MEDS: FentaNYL (PF) 2,500 MCG/50 ML IV.SOLN IVC SCH ×3 (02:30→22:59)
[2020-10-05] MEDS: Artificial Tears SOLN 15 ML BOTTLE BOTH EYES SCH ×6 (03:12→23:48)
[2020-10-05 03:31] LABS: VBG Ionized Calcium 0.87 mmol/L (1.15-1.35)
[2020-10-05 03:33] LABS: Basophils # 0.1 K/mcL (0.0-0.2); Basophils % 0.7 %; Eosinophils # 0.2 K/mcL (0.0-0.6); Eosinophils % 2.3 %; Hematocrit 31.5 % (37.5-50.1); Hemoglobin 11.4 g/dL (12.9-16.9); Immature Granulocytes % 0.7 % (0-4); Lymphocytes # 1.3 K/mcL (0.6-4.6); Lymphocytes % 18.8 %; Mean Corpuscular HGB Conc 36.2 g/dL (31.6-35.5); Mean Corpuscular Hemoglobin 34.2 pg (28.0-33.3); Mean Corpuscular Volume 94.6 fL (83.0-100.0); Mean Platelet Volume 10.1 fL (9.4-12.4); Monocytes # 0.5 K/mcL (0.0-1.3); Monocytes % 6.4 %; Platelet Count 181 K/mcL (140-400); Red Blood Count 3.33 M/mcL (4.19-5.50); Red Cell Distribution Width 13.4 % (11.5-14.5); Segmented Neutrophils % 71.1 %; White Blood Count 7.1 K/mcL (4.3-11.1)
[2020-10-05 03:56] LABS: ABG Base Excess 10 mEq/L (-2 to 3); ABG HCO3 36 mEq/L (21-27); ABG Oxygen Saturation 91 % (95-98); ABG PCO2 51 mmHg (35-45); ABG PH 7.45 pH Units (7.32-7.45); ABG PO2 59 mmHg (85-104); ABG TCO2 38 mEq/L (20-26); Blood Gas VT 500 cc
[2020-10-05 04:39] LABS: BUN/Creatinine Ratio 44 (6-26); Blood Urea Nitrogen 19 mg/dL (6-20); Calcium 8.5 mg/dL (8.6-10.3); Carbon Dioxide 36 mEq/L (23-29); Chloride 95 mEq/L (98-107); Glucose 134 mg/dL (70-105); Magnesium 1.8 mg/dL (1.6-2.6); Osmolality,Calculated 286 (280-300); Phosphorous 3.2 mg/dL (2.7-4.5); Potassium 3.3 mEq/L (3.5-5.1); Sodium 136 mEq/L (136-145); eGFR For African Americans > 60 (> 60); eGFR For Non-African Americans > 60 (> 60)
[2020-10-05] MEDS: Potassium Chloride 40 MEQ/200 ML BAG IVPB PRN ×3 (04:59→15:21)
[2020-10-05] MEDS: Calcium Gluconate 1gm/50mL 1 GM/50 ML BAG IVPB PRN (05:00)
[2020-10-05] MEDS: *HR* Heparin 5,000 UNIT/ML VIAL SQ SCH ×3 (05:01→20:35)
[2020-10-05] MEDS ORDERED: Calcium Chloride 2,000 MG in 0.9 % Sodium Chloride 100 ML IVPB ONE (05:03)
[2020-10-05] MEDS: Dexmedetomidine HCl 400 MCG/100 ML MLS IVC SCH ×3 (06:03→19:43)
[2020-10-05] MEDS: Insulin LISPRO 300 UNITS/3 ML VIAL SUBQ SCH ×4 (06:07→23:48)
[2020-10-05] MEDS ORDERED: Furosemide 40 MG/4 ML VIAL IVP ONE ×2 (07:37→18:02)
[2020-10-05] MEDS ORDERED: Potassium Chloride Elixir 20 MEQ/15 ML UDC GTUBE ONE ×2 (07:41→18:02)
[2020-10-05] MEDS: Budesonide/Formoterol 160/4.5 1 PUFF INH IH SCH ×2 (07:52→19:40)
[2020-10-05] MEDS: amLODIPine 5 MG TABLET PO SCH (09:25)
[2020-10-05] MEDS: Acyclovir 700 MG in D5% in Water 250 ML IVPB SCH ×3 (09:26→23:48)
[2020-10-05] MEDS: Thiamine (B-1) 100 MG in 0.9 % Sodium Chloride 50 ML IVPB SCH ×2 (09:27→20:38)
[2020-10-05] MEDS: Calcium Gluconate 1gm/50mL 1 GM/50 ML BAG IVPB SCH ×2 (09:28→11:26)
[2020-10-05] MEDS: Lactobacillus 1 EACH CAP.SPRINK PO SCH (09:28)
[2020-10-05] MEDS: Pantoprazole 40 MG VIAL IVP SCH (09:28)
[2020-10-05] MEDS: Valproic Acid Oral Soln 250 MG/5 ML UDC GTUBE SCH ×2 (09:29→20:35)
[2020-10-05] MEDS: Chlorhexidine Rinse 15 ML MOUTHWASH MM SCH ×2 (09:29→20:35)
[2020-10-05] MEDS: clonazePAM 0.5 MG TABLET PO SCH ×2 (09:29→20:35)
[2020-10-05] MEDS: Topiramate 25 MG TABLET PO SCH (09:29)
[2020-10-05] MEDS: Docusate Oral Soln 100 MG/10 ML UDC GTUBE SCH ×2 (09:29→20:35)
[2020-10-05 12:44] LABS: VBG Ionized Calcium 1.23 mmol/L (1.15-1.35)
[2020-10-05 13:01] LABS: Potassium 3.5 mEq/L (3.5-5.1)
[2020-10-05] MEDS: Norepinephrine 4 MG/254 ML IV.SOLN IVC SCH (15:13)
[2020-10-05] MEDS: Midazolam HCl 50 MG/100 ML IV.SOLN IVC SCH (15:13)
[2020-10-06] MEDS: Artificial Tears SOLN 15 ML BOTTLE BOTH EYES SCH ×6 (04:19→23:37)
[2020-10-06] MEDS: Dexmedetomidine HCl 400 MCG/100 ML MLS IVC SCH ×3 (04:19→21:46)
[2020-10-06 04:38] LABS: ABG Base Excess 12 mEq/L (-2 to 3); ABG HCO3 39 mEq/L (21-27); ABG Oxygen Saturation 88 % (95-98); ABG PCO2 63 mmHg (35-45); ABG PO2 57 mmHg (85-104); ABG TCO2 41 mEq/L (20-26); Blood Gas Modality ASSIST CONTROL; Blood Gas VT 500 cc
[2020-10-06 04:42] LABS: VBG Ionized Calcium 1.05 mmol/L (1.15-1.35)
[2020-10-06 05:05] LABS: Basophils # 0.1 K/mcL (0.0-0.2); Basophils % 0.5 %; Eosinophils # 0.3 K/mcL (0.0-0.6); Eosinophils % 3.2 %; Hematocrit 37.4 % (37.5-50.1); Hemoglobin 11.5 g/dL (12.9-16.9); Immature Granulocytes % 0.5 % (0-4); Lymphocytes # 1.5 K/mcL (0.6-4.6); Lymphocytes % 16.2 %; Mean Corpuscular HGB Conc 30.7 g/dL (31.6-35.5); Mean Corpuscular Hemoglobin 28.8 pg (28.0-33.3); Mean Corpuscular Volume 93.7 fL (83.0-100.0); Mean Platelet Volume 9.4 fL (9.4-12.4); Monocytes # 0.6 K/mcL (0.0-1.3); Monocytes % 6.2 %; Neutrophils # 6.7 K/mcL (1.6-8.9); Platelet Count 209 K/mcL (140-400); Red Blood Count 3.99 M/mcL (4.19-5.50); Red Cell Distribution Width 13.4 % (11.5-14.5); Segmented Neutrophils % 73.4 %; White Blood Count 9.2 K/mcL (4.3-11.1)
[2020-10-06 05:31] LABS: BUN/Creatinine Ratio 41 (6-26); Blood Urea Nitrogen 19 mg/dL (6-20); Calcium 8.8 mg/dL (8.6-10.3); Carbon Dioxide 35 mEq/L (23-29); Chloride 96 mEq/L (98-107); Glucose 124 mg/dL (70-105); Osmolality,Calculated 288 (280-300); Phosphorous 4.2 mg/dL (2.7-4.5); Sodium 137 mEq/L (136-145); eGFR For African Americans > 60 (> 60); eGFR For Non-African Americans > 60 (> 60)
[2020-10-06] MEDS: *HR* Heparin 5,000 UNIT/ML VIAL SQ SCH ×3 (05:46→21:23)
[2020-10-06] MEDS: Calcium Gluconate 1gm/50mL 1 GM/50 ML BAG IVPB PRN (05:46)
[2020-10-06] MEDS: Insulin LISPRO 300 UNITS/3 ML VIAL SUBQ SCH ×4 (05:47→23:37)
[2020-10-06] MEDS: Budesonide/Formoterol 160/4.5 1 PUFF INH IH SCH ×2 (07:55→19:20)
[2020-10-06] MEDS ORDERED: *HR* Midazolam HCl 2 MG/2 ML VIAL IVP PRN (07:58)
[2020-10-06] MEDS: Pantoprazole 40 MG VIAL IVP SCH (08:49)
[2020-10-06] MEDS: Potassium Chloride Elixir 20 MEQ/15 ML UDC GTUBE SCH (08:49)
[2020-10-06] MEDS: clonazePAM 0.5 MG TABLET PO SCH ×2 (08:50→20:26)
[2020-10-06] MEDS: Valproic Acid Oral Soln 250 MG/5 ML UDC GTUBE SCH ×2 (08:50→20:25)
[2020-10-06] MEDS: amLODIPine 5 MG TABLET PO SCH (08:50)
[2020-10-06] MEDS: Docusate Oral Soln 100 MG/10 ML UDC GTUBE SCH ×2 (08:50→20:25)
[2020-10-06] MEDS: Furosemide 40 MG/4 ML VIAL IVP SCH ×2 (08:50→20:26)
[2020-10-06] MEDS: Topiramate 25 MG TABLET PO SCH (08:51)
[2020-10-06] MEDS: Chlorhexidine Rinse 15 ML MOUTHWASH MM SCH ×2 (08:51→20:25)
[2020-10-06] MEDS: Thiamine (B-1) 100 MG in 0.9 % Sodium Chloride 50 ML IVPB SCH ×2 (08:51→20:26)
[2020-10-06] MEDS: Lactobacillus 1 EACH CAP.SPRINK PO SCH (08:51)
[2020-10-06] MEDS: Acyclovir 700 MG in D5% in Water 250 ML IVPB SCH ×2 (08:51→16:09)
[2020-10-06] MEDS: FentaNYL (PF) 2,500 MCG/50 ML IV.SOLN IVC SCH (10:22)
[2020-10-06] MEDS: Midazolam HCl 50 MG/100 ML IV.SOLN IVC SCH (13:06)
[2020-10-06] MEDS: Norepinephrine 4 MG/254 ML IV.SOLN IVC SCH (13:06)
[2020-10-07] MEDS: FentaNYL (PF) 2,500 MCG/50 ML IV.SOLN IVC SCH ×3 (01:18→21:27)
[2020-10-07 03:31] LABS: Basophils # 0.1 K/mcL (0.0-0.2); Basophils % 0.7 %; Eosinophils # 0.3 K/mcL (0.0-0.6); Eosinophils % 3.5 %; Hematocrit 34.8 % (37.5-50.1); Hemoglobin 11.3 g/dL (12.9-16.9); Immature Granulocytes % 0.7 % (0-4); Lymphocytes # 1.6 K/mcL (0.6-4.6); Lymphocytes % 17.3 %; Mean Corpuscular HGB Conc 32.5 g/dL (31.6-35.5); Mean Corpuscular Hemoglobin 30.1 pg (28.0-33.3); Mean Corpuscular Volume 92.6 fL (83.0-100.0); Mean Platelet Volume 9.3 fL (9.4-12.4); Monocytes # 0.8 K/mcL (0.0-1.3); Monocytes % 8.3 %; Neutrophils # 6.3 K/mcL (1.6-8.9); Platelet Count 199 K/mcL (140-400); Red Blood Count 3.76 M/mcL (4.19-5.50); Red Cell Distribution Width 13.6 % (11.5-14.5); Segmented Neutrophils % 69.5 %; White Blood Count 9.1 K/mcL (4.3-11.1)
[2020-10-07] MEDS: Artificial Tears SOLN 15 ML BOTTLE BOTH EYES SCH ×5 (03:31→21:05)
[2020-10-07 03:49] LABS: ABG Base Excess 11 mEq/L (-2 to 3); ABG HCO3 37 mEq/L (21-27); ABG Oxygen Saturation 92 % (95-98); ABG PCO2 50 mmHg (35-45); ABG PH 7.47 pH Units (7.32-7.45); ABG PO2 61 mmHg (85-104); ABG TCO2 38 mEq/L (20-26); Blood Gas VT 500 cc
[2020-10-07 03:50] LABS: Alanine Aminotransferase 31 Units/L (7-52); Albumin 3.3 g/dL (3.5-5.7); Albumin/Globulin Ratio 1.1 (1.1-2.2); Alkaline Phosphatase 53 Units/L (34-104); Aspartate Amino Transferase 17 Units/L (13-39); BUN/Creatinine Ratio 51 (6-26); Bilirubin,Total 0.3 mg/dL (0.3-1.0); Blood Urea Nitrogen 26 mg/dL (6-20); Calcium 8.7 mg/dL (8.6-10.3); Carbon Dioxide 37 mEq/L (23-29); Chloride 95 mEq/L (98-107); Globulin 3.1 g/dL (2.4-3.5); Glucose 132 mg/dL (70-105); Osmolality,Calculated 293 (280-300); Phosphorous 4.4 mg/dL (2.7-4.5); Potassium 3.7 mEq/L (3.5-5.1); Sodium 138 mEq/L (136-145); Total Protein 6.4 g/dL (6.4-8.9); eGFR For African Americans > 60 (> 60); eGFR For Non-African Americans > 60 (> 60)
[2020-10-07] MEDS: Dexmedetomidine HCl 400 MCG/100 ML MLS IVC SCH ×3 (04:37→21:04)
[2020-10-07] MEDS: Potassium Chloride 40 MEQ/200 ML BAG IVPB PRN (04:38)
[2020-10-07] MEDS: Calcium Gluconate 1gm/50mL 1 GM/50 ML BAG IVPB SCH ×2 (04:38→05:16)
[2020-10-07] MEDS: *HR* Heparin 5,000 UNIT/ML VIAL SQ SCH ×3 (05:16→21:03)
[2020-10-07] MEDS: Insulin LISPRO 300 UNITS/3 ML VIAL SUBQ SCH ×3 (05:48→17:09)
[2020-10-07] MEDS: Budesonide/Formoterol 160/4.5 1 PUFF INH IH SCH ×2 (08:20→19:21)
[2020-10-07] MEDS: Chlorhexidine Rinse 15 ML MOUTHWASH MM SCH ×2 (09:00→21:01)
[2020-10-07] MEDS: Lactobacillus 1 EACH CAP.SPRINK PO SCH (09:01)
[2020-10-07] MEDS: Furosemide 40 MG/4 ML VIAL IVP SCH ×2 (09:01→21:03)
[2020-10-07] MEDS: Valproic Acid Oral Soln 250 MG/5 ML UDC GTUBE SCH ×2 (09:01→21:01)
[2020-10-07] MEDS: clonazePAM 0.5 MG TABLET PO SCH ×2 (09:01→21:04)
[2020-10-07] MEDS: amLODIPine 5 MG TABLET PO SCH (09:01)
[2020-10-07] MEDS: Docusate Oral Soln 100 MG/10 ML UDC GTUBE SCH ×2 (09:01→21:01)
[2020-10-07] MEDS: Potassium Chloride Elixir 20 MEQ/15 ML UDC GTUBE SCH (09:01)
[2020-10-07] MEDS: Topiramate 25 MG TABLET PO SCH (09:01)
[2020-10-07] MEDS: Pantoprazole 40 MG VIAL IVP SCH (09:02)
[2020-10-07] MEDS: Thiamine (B-1) 100 MG in 0.9 % Sodium Chloride 50 ML IVPB SCH ×2 (09:40→21:07)
[2020-10-07] MEDS: Norepinephrine 4 MG/254 ML IV.SOLN IVC SCH (16:22)
[2020-10-07] MEDS: Midazolam HCl 50 MG/100 ML IV.SOLN IVC SCH (16:22)
[2020-10-07] MEDS: Calcium Gluconate 1gm/50mL 1 GM/50 ML BAG IVPB PRN ×2 (16:38→17:18)
[2020-10-07 17:00] LABS: VBG Ionized Calcium 1.05 mmol/L (1.15-1.35)
[2020-10-07 23:02] LABS: VBG Ionized Calcium 1.02 mmol/L (1.15-1.35)
[2020-10-08 03:32] LABS: VBG Ionized Calcium 1.01 mmol/L (1.15-1.35)
[2020-10-08 03:42] LABS: Basophils # 0.1 K/mcL (0.0-0.2); Basophils % 0.6 %; Eosinophils # 0.4 K/mcL (0.0-0.6); Eosinophils % 4.2 %; Hematocrit 36.2 % (37.5-50.1); Hemoglobin 11.4 g/dL (12.9-16.9); Immature Granulocytes % 0.5 % (0-4); Lymphocytes # 1.7 K/mcL (0.6-4.6); Lymphocytes % 17.4 %; Mean Corpuscular HGB Conc 31.5 g/dL (31.6-35.5); Mean Corpuscular Hemoglobin 29.1 pg (28.0-33.3); Mean Corpuscular Volume 92.3 fL (83.0-100.0); Mean Platelet Volume 9.4 fL (9.4-12.4); Monocytes # 0.7 K/mcL (0.0-1.3); Monocytes % 7.3 %; Neutrophils # 6.6 K/mcL (1.6-8.9); Platelet Count 237 K/mcL (140-400); Red Blood Count 3.92 M/mcL (4.19-5.50); Red Cell Distribution Width 13.4 % (11.5-14.5); White Blood Count 9.5 K/mcL (4.3-11.1)
[2020-10-08 04:04] LABS: Alanine Aminotransferase 31 Units/L (7-52); Albumin 3.4 g/dL (3.5-5.7); Alkaline Phosphatase 61 Units/L (34-104); Aspartate Amino Transferase 20 Units/L (13-39); BUN/Creatinine Ratio 43 (6-26); Bilirubin,Total 0.3 mg/dL (0.3-1.0); Blood Urea Nitrogen 23 mg/dL (6-20); Calcium 8.7 mg/dL (8.6-10.3); Carbon Dioxide 32 mEq/L (23-29); Chloride 96 mEq/L (98-107); Globulin 3.5 g/dL (2.4-3.5); Glucose 143 mg/dL (70-105); Osmolality,Calculated 290 (280-300); Phosphorous 4.8 mg/dL (2.7-4.5); Potassium 3.8 mEq/L (3.5-5.1); Sodium 137 mEq/L (136-145); Total Protein 6.9 g/dL (6.4-8.9); eGFR For African Americans > 60 (> 60); eGFR For Non-African Americans > 60 (> 60)
[2020-10-08 04:10] LABS: ABG Base Excess 7 mEq/L (-2 to 3); ABG HCO3 33 mEq/L (21-27); ABG Oxygen Saturation 94 % (95-98); ABG PCO2 51 mmHg (35-45); ABG PH 7.42 pH Units (7.32-7.45); ABG PO2 69 mmHg (85-104); ABG TCO2 35 mEq/L (20-26); Blood Gas Modality ASSIST CONTROL; Blood Gas VT 500 cc
[2020-10-08] MEDS: Artificial Tears SOLN 15 ML BOTTLE BOTH EYES SCH ×7 (04:19→23:16)
[2020-10-08] MEDS: Dexmedetomidine HCl 400 MCG/100 ML MLS IVC SCH ×3 (04:38→20:10)
[2020-10-08] MEDS: *HR* Heparin 5,000 UNIT/ML VIAL SQ SCH ×3 (05:08→21:01)
[2020-10-08] MEDS: Potassium Chloride 40 MEQ/200 ML BAG IVPB PRN (05:09)
[2020-10-08] MEDS: Calcium Gluconate 1gm/50mL 1 GM/50 ML BAG IVPB PRN (05:09)
[2020-10-08] MEDS: Insulin LISPRO 300 UNITS/3 ML VIAL SUBQ SCH ×5 (05:22→23:15)
[2020-10-08] MEDS: Budesonide/Formoterol 160/4.5 1 PUFF INH IH SCH ×2 (07:18→19:32)
[2020-10-08] MEDS: Valproic Acid Oral Soln 250 MG/5 ML UDC GTUBE SCH ×2 (07:47→20:11)
[2020-10-08] MEDS: Potassium Chloride Elixir 20 MEQ/15 ML UDC GTUBE SCH (07:48)
[2020-10-08] MEDS: Chlorhexidine Rinse 15 ML MOUTHWASH MM SCH ×2 (07:48→20:11)
[2020-10-08] MEDS: Pantoprazole 40 MG VIAL IVP SCH (07:48)
[2020-10-08] MEDS: Docusate Oral Soln 100 MG/10 ML UDC GTUBE SCH ×2 (07:48→20:11)
[2020-10-08] MEDS: Furosemide 40 MG/4 ML VIAL IVP SCH ×2 (07:48→20:10)
[2020-10-08] MEDS: Lactobacillus 1 EACH CAP.SPRINK PO SCH (07:49)
[2020-10-08] MEDS: clonazePAM 0.5 MG TABLET PO SCH ×2 (07:49→20:13)
[2020-10-08] MEDS: Topiramate 25 MG TABLET PO SCH (07:49)
[2020-10-08] MEDS: amLODIPine 5 MG TABLET PO SCH (07:49)
[2020-10-08] MEDS: Thiamine (B-1) 100 MG in 0.9 % Sodium Chloride 50 ML IVPB SCH ×2 (07:51→20:10)
[2020-10-08] MEDS ORDERED: *HR* Succinylcholine 200 MG/10 ML VIAL IVP ONE (11:02)
[2020-10-08] MEDS ORDERED: *HR* Propofol 200 MG/20 ML VIAL IVP ONE (11:02)
[2020-10-08] MEDS: FentaNYL (PF) 2,500 MCG/50 ML IV.SOLN IVC SCH (12:10)
[2020-10-08 14:30] LABS: ABG PCO2 > 150 mmHg (35-45); ABG PH 7.19 pH Units (7.32-7.45); ABG PO2 65 mmHg (85-104); Blood Gas VT 550 cc
[2020-10-08 16:29] LABS: ABG Base Excess 7 mEq/L (-2 to 3); ABG HCO3 36 mEq/L (21-27); ABG Oxygen Saturation 93 % (95-98); ABG PCO2 72 mmHg (35-45); ABG PH 7.31 pH Units (7.32-7.45); ABG PO2 78 mmHg (85-104); ABG TCO2 38 mEq/L (20-26); Blood Gas Modality ASSIST CONTROL; Blood Gas VT 500 cc
[2020-10-08] MEDS: Norepinephrine 4 MG/254 ML IV.SOLN IVC SCH (17:22)
[2020-10-08] MEDS: Midazolam HCl 50 MG/100 ML IV.SOLN IVC SCH (17:22)
[2020-10-08] MEDS: QUEtiapine Fumarate 25 MG TABLET PO SCH (20:11)
[2020-10-09] MEDS: FentaNYL (PF) 2,500 MCG/50 ML IV.SOLN IVC SCH (03:00)
[2020-10-09] MEDS: Artificial Tears SOLN 15 ML BOTTLE BOTH EYES SCH ×5 (03:15→19:58)
[2020-10-09 03:46] LABS: ABG Base Excess 11 mEq/L (-2 to 3); ABG HCO3 38 mEq/L (21-27); ABG Oxygen Saturation 94 % (95-98); ABG PCO2 68 mmHg (35-45); ABG PH 7.36 pH Units (7.32-7.45); ABG PO2 75 mmHg (85-104); ABG TCO2 40 mEq/L (20-26); Blood Gas Modality ASSIST CONTROL; Blood Gas VT 500 cc
[2020-10-09 03:54] LABS: Basophils % 0.4 %; Eosinophils # 0.2 K/mcL (0.0-0.6); Eosinophils % 2.1 %; Hematocrit 35.6 % (37.5-50.1); Hemoglobin 10.9 g/dL (12.9-16.9); Immature Granulocytes % 0.4 % (0-4); Lymphocytes # 1.4 K/mcL (0.6-4.6); Lymphocytes % 14.9 %; Mean Corpuscular HGB Conc 30.6 g/dL (31.6-35.5); Mean Corpuscular Hemoglobin 29.3 pg (28.0-33.3); Mean Corpuscular Volume 95.7 fL (83.0-100.0); Monocytes # 0.7 K/mcL (0.0-1.3); Monocytes % 7.5 %; Neutrophils # 7.1 K/mcL (1.6-8.9); Platelet Count 229 K/mcL (140-400); Red Blood Count 3.72 M/mcL (4.19-5.50); Red Cell Distribution Width 13.4 % (11.5-14.5); Segmented Neutrophils % 74.7 %; White Blood Count 9.5 K/mcL (4.3-11.1)
[2020-10-09 04:05] LABS: VBG Ionized Calcium 1.06 mmol/L (1.15-1.35)
[2020-10-09] MEDS: Dexmedetomidine HCl 400 MCG/100 ML MLS IVC SCH ×3 (04:10→19:56)
[2020-10-09 04:13] LABS: Alanine Aminotransferase 28 Units/L (7-52); Albumin 3.4 g/dL (3.5-5.7); Albumin/Globulin Ratio 1.1 (1.1-2.2); Alkaline Phosphatase 63 Units/L (34-104); Aspartate Amino Transferase 15 Units/L (13-39); BUN/Creatinine Ratio 40 (6-26); Bilirubin,Total 0.3 mg/dL (0.3-1.0); Blood Urea Nitrogen 20 mg/dL (6-20); Calcium 8.7 mg/dL (8.6-10.3); Carbon Dioxide 35 mEq/L (23-29); Chloride 96 mEq/L (98-107); Globulin 3.2 g/dL (2.4-3.5); Glucose 132 mg/dL (70-105); Osmolality,Calculated 290 (280-300); Phosphorous 4.1 mg/dL (2.7-4.5); Potassium 3.7 mEq/L (3.5-5.1); Sodium 138 mEq/L (136-145); Total Protein 6.6 g/dL (6.4-8.9); eGFR For African Americans > 60 (> 60); eGFR For Non-African Americans > 60 (> 60)
[2020-10-09] MEDS: *HR* Heparin 5,000 UNIT/ML VIAL SQ SCH ×3 (05:52→21:03)
[2020-10-09] MEDS: Potassium Chloride 40 MEQ/200 ML BAG IVPB PRN ×2 (05:59→07:02)
[2020-10-09] MEDS: Insulin LISPRO 300 UNITS/3 ML VIAL SUBQ SCH ×3 (06:13→18:07)
[2020-10-09] MEDS: Budesonide/Formoterol 160/4.5 1 PUFF INH IH SCH ×2 (07:42→21:00)
[2020-10-09] MEDS: Docusate Oral Soln 100 MG/10 ML UDC GTUBE SCH ×2 (08:35→19:57)
[2020-10-09] MEDS: Chlorhexidine Rinse 15 ML MOUTHWASH MM SCH ×2 (08:35→19:57)
[2020-10-09] MEDS: Pantoprazole 40 MG VIAL IVP SCH (08:35)
[2020-10-09] MEDS: Valproic Acid Oral Soln 250 MG/5 ML UDC GTUBE SCH ×2 (08:35→19:57)
[2020-10-09] MEDS: Potassium Chloride Elixir 20 MEQ/15 ML UDC GTUBE SCH (08:35)
[2020-10-09] MEDS: Thiamine (B-1) 100 MG in 0.9 % Sodium Chloride 50 ML IVPB SCH (08:36)
[2020-10-09] MEDS: Furosemide 40 MG/4 ML VIAL IVP SCH ×2 (08:36→19:57)
[2020-10-09] MEDS: Topiramate 25 MG TABLET PO SCH (08:37)
[2020-10-09] MEDS: amLODIPine 5 MG TABLET PO SCH (08:37)
[2020-10-09] MEDS: Lactobacillus 1 EACH CAP.SPRINK PO SCH (08:37)
[2020-10-09] MEDS: clonazePAM 0.5 MG TABLET PO SCH ×2 (08:37→19:58)
[2020-10-09] MEDS: Calcium Gluconate 1gm/50mL 1 GM/50 ML BAG IVPB SCH ×2 (09:31→10:43)
[2020-10-09 14:48] LABS: Bilirubin,Direct 0.1 mg/dL (0.0-0.2); Bilirubin,Indirect 0.2 mg/dL (0.0-1.0)
[2020-10-09] MEDS: Norepinephrine 4 MG/254 ML IV.SOLN IVC SCH (16:11)
[2020-10-09 18:47] LABS: VBG Ionized Calcium 1.06 mmol/L (1.15-1.35)
[2020-10-09 19:06] LABS: BUN/Creatinine Ratio 40 (6-26); Blood Urea Nitrogen 17 mg/dL (6-20); Calcium 8.6 mg/dL (8.6-10.3); Carbon Dioxide 34 mEq/L (23-29); Chloride 93 mEq/L (98-107); Glucose 183 mg/dL (70-105); Osmolality,Calculated 284 (280-300); Phosphorous 4.1 mg/dL (2.7-4.5); Potassium 4.1 mEq/L (3.5-5.1); Sodium 134 mEq/L (136-145); eGFR For African Americans > 60 (> 60); eGFR For Non-African Americans > 60 (> 60)
[2020-10-09] MEDS: QUEtiapine Fumarate 25 MG TABLET PO SCH (19:58)
[2020-10-09] MEDS: Thiamine (B-1) 100 MG TABLET GTUBE SCH (19:58)
[2020-10-10] MEDS: Artificial Tears SOLN 15 ML BOTTLE BOTH EYES SCH ×7 (00:21→23:42)
[2020-10-10] MEDS: Insulin LISPRO 300 UNITS/3 ML VIAL SUBQ SCH ×5 (00:22→23:42)
[2020-10-10 03:20] LABS: Basophils # 0.1 K/mcL (0.0-0.2); Basophils % 0.6 %; Eosinophils # 0.3 K/mcL (0.0-0.6); Eosinophils % 2.6 %; Hematocrit 36.3 % (37.5-50.1); Hemoglobin 10.9 g/dL (12.9-16.9); Immature Granulocytes % 0.4 % (0-4); Lymphocytes # 1.5 K/mcL (0.6-4.6); Lymphocytes % 14.8 %; Mean Corpuscular Hemoglobin 28.6 pg (28.0-33.3); Mean Corpuscular Volume 95.3 fL (83.0-100.0); Mean Platelet Volume 8.7 fL (9.4-12.4); Monocytes # 0.9 K/mcL (0.0-1.3); Monocytes % 8.3 %; Neutrophils # 7.6 K/mcL (1.6-8.9); Platelet Count 226 K/mcL (140-400); Red Blood Count 3.81 M/mcL (4.19-5.50); Red Cell Distribution Width 13.2 % (11.5-14.5); Segmented Neutrophils % 73.3 %; White Blood Count 10.3 K/mcL (4.3-11.1)
[2020-10-10 03:30] LABS: VBG Ionized Calcium 1.09 mmol/L (1.15-1.35)
[2020-10-10 03:45] LABS: Alanine Aminotransferase 22 Units/L (7-52); Albumin 3.4 g/dL (3.5-5.7); Alkaline Phosphatase 59 Units/L (34-104); Aspartate Amino Transferase 11 Units/L (13-39); BUN/Creatinine Ratio 38 (6-26); Bilirubin,Total 0.4 mg/dL (0.3-1.0); Blood Urea Nitrogen 18 mg/dL (6-20); Calcium 8.9 mg/dL (8.6-10.3); Carbon Dioxide 37 mEq/L (23-29); Chloride 97 mEq/L (98-107); Globulin 3.5 g/dL (2.4-3.5); Glucose 133 mg/dL (70-105); Osmolality,Calculated 294 (280-300); Phosphorous 3.6 mg/dL (2.7-4.5); Potassium 3.7 mEq/L (3.5-5.1); Sodium 140 mEq/L (136-145); Total Protein 6.9 g/dL (6.4-8.9); eGFR For African Americans > 60 (> 60); eGFR For Non-African Americans > 60 (> 60)
[2020-10-10 04:31] LABS: ABG Base Excess 10 mEq/L (-2 to 3); ABG HCO3 37 mEq/L (21-27); ABG Oxygen Saturation 94 % (95-98); ABG PCO2 61 mmHg (35-45); ABG PO2 73 mmHg (85-104); ABG TCO2 39 mEq/L (20-26); Blood Gas VT 500 cc
[2020-10-10] MEDS: Dexmedetomidine HCl 400 MCG/100 ML MLS IVC SCH ×4 (05:19→19:15)
[2020-10-10] MEDS: *HR* Heparin 5,000 UNIT/ML VIAL SQ SCH ×3 (05:25→21:14)
[2020-10-10] MEDS: Potassium Chloride 40 MEQ/200 ML BAG IVPB PRN (06:15)
[2020-10-10] MEDS: Budesonide/Formoterol 160/4.5 1 PUFF INH IH SCH ×2 (07:26→20:23)
[2020-10-10] MEDS: Docusate Oral Soln 100 MG/10 ML UDC GTUBE SCH ×2 (08:41→20:29)
[2020-10-10] MEDS: Potassium Chloride Elixir 20 MEQ/15 ML UDC GTUBE SCH (08:42)
[2020-10-10] MEDS: Furosemide 40 MG/4 ML VIAL IVP SCH ×2 (08:42→20:29)
[2020-10-10] MEDS: Chlorhexidine Rinse 15 ML MOUTHWASH MM SCH ×2 (08:42→20:29)
[2020-10-10] MEDS: Valproic Acid Oral Soln 250 MG/5 ML UDC GTUBE SCH ×2 (08:42→20:29)
[2020-10-10] MEDS: amLODIPine 5 MG TABLET PO SCH (08:43)
[2020-10-10] MEDS: Topiramate 25 MG TABLET PO SCH (08:43)
[2020-10-10] MEDS: Pantoprazole 40 MG VIAL IVP SCH (08:43)
[2020-10-10] MEDS: clonazePAM 0.5 MG TABLET PO SCH ×2 (08:43→20:29)
[2020-10-10] MEDS: Thiamine (B-1) 100 MG TABLET GTUBE SCH ×3 (08:43→20:29)
[2020-10-10] MEDS: Lactobacillus 1 EACH CAP.SPRINK PO SCH (08:57)
[2020-10-10] MEDS: Norepinephrine 4 MG/254 ML IV.SOLN IVC SCH (19:37)
[2020-10-10] MEDS: QUEtiapine Fumarate 25 MG TABLET PO SCH (20:29)
[2020-10-11] MEDS: Dexmedetomidine HCl 400 MCG/100 ML MLS IVC SCH ×4 (00:13→16:23)
[2020-10-11] MEDS: Artificial Tears SOLN 15 ML BOTTLE BOTH EYES SCH ×2 (03:53→08:20)
[2020-10-11 03:59] LABS: VBG Ionized Calcium 1.08 mmol/L (1.15-1.35)
[2020-10-11 04:00] LABS: Basophils % 0.4 %; Eosinophils # 0.1 K/mcL (0.0-0.6); Eosinophils % 1.1 %; Hematocrit 39.2 % (37.5-50.1); Hemoglobin 11.8 g/dL (12.9-16.9); Immature Granulocytes % 0.4 % (0-4); Lymphocytes # 0.9 K/mcL (0.6-4.6); Lymphocytes % 8.5 %; Mean Corpuscular HGB Conc 30.1 g/dL (31.6-35.5); Mean Corpuscular Hemoglobin 29.1 pg (28.0-33.3); Mean Corpuscular Volume 96.8 fL (83.0-100.0); Mean Platelet Volume 8.6 fL (9.4-12.4); Monocytes # 0.7 K/mcL (0.0-1.3); Monocytes % 6.2 %; Neutrophils # 9.2 K/mcL (1.6-8.9); Platelet Count 257 K/mcL (140-400); Red Blood Count 4.05 M/mcL (4.19-5.50); Red Cell Distribution Width 12.9 % (11.5-14.5); Segmented Neutrophils % 83.4 %
[2020-10-11 04:17] LABS: Alanine Aminotransferase 19 Units/L (7-52); Albumin 3.6 g/dL (3.5-5.7); Albumin/Globulin Ratio 0.9 (1.1-2.2); Alkaline Phosphatase 59 Units/L (34-104); Aspartate Amino Transferase 10 Units/L (13-39); BUN/Creatinine Ratio 40 (6-26); Bilirubin,Total 0.4 mg/dL (0.3-1.0); Blood Urea Nitrogen 17 mg/dL (6-20); Calcium 9.2 mg/dL (8.6-10.3); Carbon Dioxide 39 mEq/L (23-29); Chloride 95 mEq/L (98-107); Globulin 3.9 g/dL (2.4-3.5); Glucose 140 mg/dL (70-105); Osmolality,Calculated 294 (280-300); Phosphorous 4.2 mg/dL (2.7-4.5); Potassium 4.3 mEq/L (3.5-5.1); Sodium 140 mEq/L (136-145); Total Protein 7.5 g/dL (6.4-8.9); eGFR For African Americans > 60 (> 60); eGFR For Non-African Americans > 60 (> 60)
[2020-10-11] MEDS: Insulin LISPRO 300 UNITS/3 ML VIAL SUBQ SCH ×4 (05:16→23:42)
[2020-10-11] MEDS: *HR* Heparin 5,000 UNIT/ML VIAL SQ SCH ×3 (05:18→22:25)
[2020-10-11] MEDS ORDERED: Calcium Gluconate 1gm/50mL 1 GM/50 ML BAG IVPB PRN (05:28)
[2020-10-11] MEDS: Budesonide/Formoterol 160/4.5 1 PUFF INH IH SCH ×2 (07:41→20:03)
[2020-10-11] MEDS: Valproic Acid Oral Soln 250 MG/5 ML UDC GTUBE SCH ×2 (08:20→20:15)
[2020-10-11] MEDS: Lactobacillus 1 EACH CAP.SPRINK PO SCH (08:20)
[2020-10-11] MEDS: clonazePAM 0.5 MG TABLET PO SCH ×2 (08:20→20:15)
[2020-10-11] MEDS: Chlorhexidine Rinse 15 ML MOUTHWASH MM SCH (08:20)
[2020-10-11] MEDS: Docusate Oral Soln 100 MG/10 ML UDC GTUBE SCH ×2 (08:20→20:15)
[2020-10-11] MEDS: Thiamine (B-1) 100 MG TABLET GTUBE SCH ×3 (08:21→20:15)
[2020-10-11] MEDS: Potassium Chloride Elixir 20 MEQ/15 ML UDC GTUBE SCH (08:21)
[2020-10-11] MEDS: amLODIPine 5 MG TABLET PO SCH (08:21)
[2020-10-11] MEDS: Topiramate 25 MG TABLET PO SCH (08:21)
[2020-10-11] MEDS: Pantoprazole 40 MG VIAL IVP SCH (08:22)
[2020-10-11] MEDS: Furosemide 40 MG/4 ML VIAL IVP SCH (08:23)
[2020-10-11] MEDS ORDERED: Calcium Gluconate 1gm/50mL 1 GM/50 ML BAG IVPB SCH (08:30)
[2020-10-11] MEDS: QUEtiapine Fumarate 25 MG TABLET PO SCH (20:15)
[2020-10-12] MEDS ORDERED: Ipratropium/Albuterol Neb 3 ML ONE (02:38)
[2020-10-12] MEDS: Albuterol 2.5 MG/3 ML NEBULIZER IH PRN (02:45)
[2020-10-12] MEDS: Ipratropium/Albuterol Neb 3 ML IH SCH ×6 (03:46→23:47)
[2020-10-12 03:57] LABS: Basophils # 0.1 K/mcL (0.0-0.2); Basophils % 0.4 %; Eosinophils # 0.1 K/mcL (0.0-0.6); Eosinophils % 0.5 %; Hematocrit 41.5 % (37.5-50.1); Hemoglobin 12.1 g/dL (12.9-16.9); Immature Granulocytes % 0.4 % (0-4); Lymphocytes # 0.9 K/mcL (0.6-4.6); Lymphocytes % 7.4 %; Mean Corpuscular HGB Conc 29.2 g/dL (31.6-35.5); Mean Corpuscular Hemoglobin 28.9 pg (28.0-33.3); Mean Corpuscular Volume 99.3 fL (83.0-100.0); Mean Platelet Volume 8.3 fL (9.4-12.4); Monocytes # 0.5 K/mcL (0.0-1.3); Monocytes % 4.3 %; Neutrophils # 10.9 K/mcL (1.6-8.9); Platelet Count 266 K/mcL (140-400); Red Blood Count 4.18 M/mcL (4.19-5.50); Red Cell Distribution Width 12.8 % (11.5-14.5); White Blood Count 12.5 K/mcL (4.3-11.1)
[2020-10-12 03:59] LABS: VBG Ionized Calcium 1.15 mmol/L (1.15-1.35)
[2020-10-12 04:13] LABS: Alanine Aminotransferase 21 Units/L (7-52); Albumin 3.6 g/dL (3.5-5.7); Albumin/Globulin Ratio 0.9 (1.1-2.2); Alkaline Phosphatase 60 Units/L (34-104); Aspartate Amino Transferase 15 Units/L (13-39); BUN/Creatinine Ratio 48 (6-26); Bilirubin,Total 0.4 mg/dL (0.3-1.0); Blood Urea Nitrogen 23 mg/dL (6-20); Calcium 9.4 mg/dL (8.6-10.3); Carbon Dioxide 39 mEq/L (23-29); Chloride 95 mEq/L (98-107); Globulin 3.9 g/dL (2.4-3.5); Glucose 171 mg/dL (70-105); Osmolality,Calculated 302 (280-300); Phosphorous 4.5 mg/dL (2.7-4.5); Potassium 3.8 mEq/L (3.5-5.1); Sodium 142 mEq/L (136-145); Total Protein 7.5 g/dL (6.4-8.9); eGFR For African Americans > 60 (> 60); eGFR For Non-African Americans > 60 (> 60)
[2020-10-12 04:13] LABS: ABG Base Excess 14 mEq/L (-2 to 3); ABG HCO3 47 mEq/L (21-27); ABG Oxygen Saturation 92 % (95-98); ABG PCO2 107 mmHg (35-45); ABG PH 7.25 pH Units (7.32-7.45); ABG PO2 80 mmHg (85-104); ABG TCO2 50 mEq/L (20-26); Blood Gas VT 500 cc
[2020-10-12] MEDS: *HR* Heparin 5,000 UNIT/ML VIAL SQ SCH ×3 (05:10→21:18)
[2020-10-12] MEDS: Potassium Chloride 40 MEQ/200 ML BAG IVPB PRN (05:11)
[2020-10-12] MEDS: Insulin LISPRO 300 UNITS/3 ML VIAL SUBQ SCH ×4 (05:21→23:17)
[2020-10-12] MEDS ORDERED: Furosemide 40 MG/4 ML VIAL IVP ONE (06:17)
[2020-10-12] MEDS ORDERED: Perflutren Lipid Microsphere 1.3 ML in 0.9 % Sodium Chloride 8.7 ML IVP PRN (07:02)
[2020-10-12] MEDS: Valproic Acid Oral Soln 250 MG/5 ML UDC GTUBE SCH ×2 (07:41→18:26)
[2020-10-12] MEDS: Topiramate 25 MG TABLET PO SCH (07:41)
[2020-10-12] MEDS: clonazePAM 0.5 MG TABLET PO SCH ×2 (07:41→18:26)
[2020-10-12] MEDS: amLODIPine 5 MG TABLET PO SCH (07:41)
[2020-10-12] MEDS: Pantoprazole 40 MG VIAL IVP SCH (07:41)
[2020-10-12] MEDS: Budesonide/Formoterol 160/4.5 1 PUFF INH IH SCH ×2 (07:45→19:46)
[2020-10-12] MEDS: Thiamine (B-1) 100 MG TABLET GTUBE SCH ×3 (09:00→18:28)
[2020-10-12] MEDS: Lactobacillus 1 EACH CAP.SPRINK PO SCH (09:00)
[2020-10-12] MEDS: Potassium Chloride Elixir 20 MEQ/15 ML UDC GTUBE SCH (09:00)
[2020-10-12] MEDS: Docusate Oral Soln 100 MG/10 ML UDC GTUBE SCH ×2 (09:00→18:26)
[2020-10-12] MEDS: Piperacillin/Tazobactam 3.375 GM in 0.9 % Sodium Chloride Mini Bag 100 ML IVPB SCH ×2 (11:15→17:09)
[2020-10-12] MEDS: Acetylcysteine 10% 2 ML INHSOL IH SCH ×4 (11:23→23:47)
[2020-10-12] MEDS ORDERED: Vancomycin 1,250 MG/262.5 ML IV.SOLN IVPB SCH ×2 (12:00)
[2020-10-12] MEDS: *HR* Metoprolol 5 MG/5 ML VIAL IVP PRN ×2 (14:09→22:00)
[2020-10-12] MEDS: QUEtiapine Fumarate 25 MG TABLET PO SCH (18:27)
[2020-10-12] MEDS: Vancomycin 1,250 MG/262.5 ML IV.SOLN IVPB SCH (18:59)
[2020-10-13] MEDS: Piperacillin/Tazobactam 3.375 GM in 0.9 % Sodium Chloride Mini Bag 100 ML IVPB SCH ×3 (01:01→16:57)
[2020-10-13] MEDS: Vancomycin 1,250 MG/262.5 ML IV.SOLN IVPB SCH ×3 (03:00→19:34)
[2020-10-13 03:36] LABS: Basophils # 0.1 K/mcL (0.0-0.2); Basophils % 0.7 %; Eosinophils # 0.1 K/mcL (0.0-0.6); Eosinophils % 0.8 %; Hematocrit 38.3 % (37.5-50.1); Hemoglobin 11.5 g/dL (12.9-16.9); Immature Granulocytes % 0.4 % (0-4); Lymphocytes % 8.6 %; Mean Corpuscular Hemoglobin 29.2 pg (28.0-33.3); Mean Corpuscular Volume 97.2 fL (83.0-100.0); Mean Platelet Volume 8.5 fL (9.4-12.4); Monocytes # 0.5 K/mcL (0.0-1.3); Monocytes % 4.9 %; Neutrophils # 9.4 K/mcL (1.6-8.9); Platelet Count 273 K/mcL (140-400); Red Blood Count 3.94 M/mcL (4.19-5.50); Red Cell Distribution Width 12.7 % (11.5-14.5); Segmented Neutrophils % 84.6 %; White Blood Count 11.1 K/mcL (4.3-11.1)
[2020-10-13] MEDS: Acetylcysteine 10% 2 ML INHSOL IH SCH ×6 (03:37→23:14)
[2020-10-13] MEDS: Ipratropium/Albuterol Neb 3 ML IH SCH ×6 (03:37→23:14)
[2020-10-13 03:46] LABS: Alanine Aminotransferase 23 Units/L (7-52); Albumin 3.5 g/dL (3.5-5.7); Alkaline Phosphatase 59 Units/L (34-104); Aspartate Amino Transferase 15 Units/L (13-39); BUN/Creatinine Ratio 54 (6-26); Bilirubin,Total 0.4 mg/dL (0.3-1.0); Blood Urea Nitrogen 26 mg/dL (6-20); Calcium 9.2 mg/dL (8.6-10.3); Carbon Dioxide 41 mEq/L (23-29); Chloride 96 mEq/L (98-107); Globulin 3.6 g/dL (2.4-3.5); Glucose 139 mg/dL (70-105); Magnesium 2.1 mg/dL (1.6-2.6); Osmolality,Calculated 305 (280-300); Phosphorous 3.1 mg/dL (2.7-4.5); Potassium 3.6 mEq/L (3.5-5.1); Sodium 144 mEq/L (136-145); Total Protein 7.1 g/dL (6.4-8.9); eGFR For African Americans > 60 (> 60); eGFR For Non-African Americans > 60 (> 60)
[2020-10-13] MEDS: Potassium Chloride 40 MEQ/200 ML BAG IVPB PRN (03:50)
[2020-10-13] MEDS: *HR* Heparin 5,000 UNIT/ML VIAL SQ SCH ×3 (05:00→21:00)
[2020-10-13] MEDS: Insulin LISPRO 300 UNITS/3 ML VIAL SUBQ SCH ×4 (05:00→23:14)
[2020-10-13] MEDS: Budesonide/Formoterol 160/4.5 1 PUFF INH IH SCH ×2 (07:32→19:49)
[2020-10-13] MEDS: Docusate Oral Soln 100 MG/10 ML UDC GTUBE SCH ×2 (08:51→19:12)
[2020-10-13] MEDS: Lactobacillus 1 EACH CAP.SPRINK PO SCH (09:47)
[2020-10-13] MEDS: Pantoprazole 40 MG VIAL IVP SCH (09:47)
[2020-10-13] MEDS: Thiamine (B-1) 100 MG TABLET GTUBE SCH ×2 (09:48→17:47)
[2020-10-13] MEDS: Valproic Acid Oral Soln 250 MG/5 ML UDC GTUBE SCH ×2 (09:48→20:01)
[2020-10-13] MEDS: amLODIPine 5 MG TABLET PO SCH (09:48)
[2020-10-13] MEDS: Potassium Chloride Elixir 20 MEQ/15 ML UDC GTUBE SCH (09:48)
[2020-10-13] MEDS: clonazePAM 0.5 MG TABLET PO SCH ×2 (09:48→20:01)
[2020-10-13] MEDS: Topiramate 25 MG TABLET PO SCH (09:49)
[2020-10-13] MEDS: QUEtiapine Fumarate 25 MG TABLET PO SCH (20:01)
[2020-10-14] MEDS: Piperacillin/Tazobactam 3.375 GM in 0.9 % Sodium Chloride Mini Bag 100 ML IVPB SCH ×4 (01:00→23:00)
[2020-10-14] MEDS: Vancomycin 1,250 MG/262.5 ML IV.SOLN IVPB SCH ×3 (03:07→19:44)
[2020-10-14] MEDS: Dexmedetomidine HCl 400 MCG/100 ML MLS IVC SCH (03:08)
[2020-10-14 03:13] LABS: Basophils # 0.1 K/mcL (0.0-0.2); Basophils % 0.9 %; Eosinophils # 0.4 K/mcL (0.0-0.6); Eosinophils % 4.7 %; Hematocrit 35.5 % (37.5-50.1); Hemoglobin 10.8 g/dL (12.9-16.9); Immature Granulocytes % 0.4 % (0-4); Lymphocytes # 1.4 K/mcL (0.6-4.6); Mean Corpuscular HGB Conc 30.4 g/dL (31.6-35.5); Mean Corpuscular Hemoglobin 29.8 pg (28.0-33.3); Mean Corpuscular Volume 97.8 fL (83.0-100.0); Mean Platelet Volume 8.4 fL (9.4-12.4); Monocytes # 0.5 K/mcL (0.0-1.3); Monocytes % 6.3 %; Neutrophils # 5.4 K/mcL (1.6-8.9); Platelet Count 238 K/mcL (140-400); Red Blood Count 3.63 M/mcL (4.19-5.50); Segmented Neutrophils % 69.7 %; White Blood Count 7.7 K/mcL (4.3-11.1)
[2020-10-14 03:34] LABS: BUN/Creatinine Ratio 48 (6-26); Blood Urea Nitrogen 26 mg/dL (6-20); Calcium 9.1 mg/dL (8.6-10.3); Carbon Dioxide 37 mEq/L (23-29); Chloride 102 mEq/L (98-107); Glucose 129 mg/dL (70-105); Osmolality,Calculated 308 (280-300); Potassium 3.6 mEq/L (3.5-5.1); Sodium 146 mEq/L (136-145); eGFR For African Americans > 60 (> 60); eGFR For Non-African Americans > 60 (> 60)
[2020-10-14] MEDS: Potassium Chloride 40 MEQ/200 ML BAG IVPB PRN (03:41)
[2020-10-14] MEDS: Acetylcysteine 10% 2 ML INHSOL IH SCH ×6 (04:02→23:43)
[2020-10-14] MEDS: Ipratropium/Albuterol Neb 3 ML IH SCH ×6 (04:02→23:43)
[2020-10-14] MEDS: *HR* Heparin 5,000 UNIT/ML VIAL SQ SCH ×3 (05:01→21:01)
[2020-10-14] MEDS: Insulin LISPRO 300 UNITS/3 ML VIAL SUBQ SCH ×4 (05:02→23:01)
[2020-10-14] MEDS: Budesonide/Formoterol 160/4.5 1 PUFF INH IH SCH ×2 (07:32→20:05)
[2020-10-14] MEDS: Potassium Chloride Elixir 20 MEQ/15 ML UDC GTUBE SCH (09:01)
[2020-10-14] MEDS: Thiamine (B-1) 100 MG TABLET GTUBE SCH (09:01)
[2020-10-14] MEDS: Topiramate 25 MG TABLET PO SCH (09:01)
[2020-10-14] MEDS: Valproic Acid Oral Soln 250 MG/5 ML UDC GTUBE SCH ×2 (09:01→20:02)
[2020-10-14] MEDS: amLODIPine 5 MG TABLET PO SCH (09:02)
[2020-10-14] MEDS: clonazePAM 0.5 MG TABLET PO SCH ×2 (09:02→20:02)
[2020-10-14] MEDS: Pantoprazole 40 MG VIAL IVP SCH (09:02)
[2020-10-14] MEDS: Lactobacillus 1 EACH CAP.SPRINK PO SCH (09:02)
[2020-10-14] MEDS: Docusate Oral Soln 100 MG/10 ML UDC GTUBE SCH ×2 (09:03→19:43)
[2020-10-14] MEDS ORDERED: *HR* Dextrose 50 % in Water (Vial) 50 ML VIAL IVP PRN (10:26)
[2020-10-14] MEDS ORDERED: Dextrose Gel 15 GM/37.5 ML TUBE PO PRN ×2 (10:26)
[2020-10-14] MEDS ORDERED: Calcium Gluconate 1gm/50mL 1 GM/50 ML BAG IVPB PRN (10:26)
[2020-10-14] MEDS ORDERED: Potassium Chloride 40 MEQ/200 ML BAG IVPB PRN (10:26)
[2020-10-14] MEDS ORDERED: *HR* Midazolam HCl 2 MG/2 ML VIAL IVP PRN (10:26)
[2020-10-14] MEDS ORDERED: D5% in Water 1,000 ML IVC PRN (10:26)
[2020-10-14] MEDS ORDERED: Naloxone 0.4 MG/ML INJ IVP PRN (10:26)
[2020-10-14] MEDS ORDERED: Albuterol 2.5 MG/3 ML NEBULIZER IH PRN (10:26)
[2020-10-14] MEDS ORDERED: *HR* Metoprolol 5 MG/5 ML VIAL IVP PRN (10:26)
[2020-10-14] MEDS ORDERED: Ipratropium/Albuterol Neb 3 ML ONE (11:24)
[2020-10-14] MEDS: QUEtiapine Fumarate 25 MG TABLET PO SCH (20:02)
[2020-10-14] MEDS: Furosemide 40 MG in 0.9 % Sodium Chloride 50 ML IV SCH (20:03)
[2020-10-14] MEDS ORDERED: Furosemide 40 MG in 0.9 % Sodium Chloride 50 ML IV SCH (21:00)
[2020-10-15 03:26] LABS: Basophils # 0.1 K/mcL (0.0-0.2); Basophils % 1.1 %; Eosinophils # 0.5 K/mcL (0.0-0.6); Eosinophils % 6.7 %; Hematocrit 35.3 % (37.5-50.1); Hemoglobin 10.3 g/dL (12.9-16.9); Immature Granulocytes % 0.4 % (0-4); Lymphocytes # 1.5 K/mcL (0.6-4.6); Lymphocytes % 19.3 %; Mean Corpuscular HGB Conc 29.2 g/dL (31.6-35.5); Mean Corpuscular Hemoglobin 28.4 pg (28.0-33.3); Mean Corpuscular Volume 97.2 fL (83.0-100.0); Mean Platelet Volume 8.5 fL (9.4-12.4); Monocytes # 0.4 K/mcL (0.0-1.3); Monocytes % 5.6 %; Neutrophils # 5.3 K/mcL (1.6-8.9); Platelet Count 258 K/mcL (140-400); Red Blood Count 3.63 M/mcL (4.19-5.50); Red Cell Distribution Width 12.8 % (11.5-14.5); Segmented Neutrophils % 66.9 %; White Blood Count 7.9 K/mcL (4.3-11.1)
[2020-10-15] MEDS: Vancomycin 1,250 MG/262.5 ML IV.SOLN IVPB SCH ×3 (03:35→20:13)
[2020-10-15] MEDS: Ipratropium/Albuterol Neb 3 ML IH SCH ×6 (03:38→22:58)
[2020-10-15] MEDS: Acetylcysteine 10% 2 ML INHSOL IH SCH ×6 (03:38→22:59)
[2020-10-15 03:47] LABS: BUN/Creatinine Ratio 44 (6-26); Blood Urea Nitrogen 23 mg/dL (6-20); Carbon Dioxide 35 mEq/L (23-29); Chloride 104 mEq/L (98-107); Glucose 119 mg/dL (70-105); Magnesium 1.9 mg/dL (1.6-2.6); Osmolality,Calculated 305 (280-300); Potassium 3.6 mEq/L (3.5-5.1); Sodium 145 mEq/L (136-145); eGFR For African Americans > 60 (> 60); eGFR For Non-African Americans > 60 (> 60)
[2020-10-15] MEDS: *HR* Heparin 5,000 UNIT/ML VIAL SQ SCH ×3 (05:05→21:45)
[2020-10-15] MEDS: Insulin LISPRO 300 UNITS/3 ML VIAL SUBQ SCH ×3 (05:06→18:23)
[2020-10-15] MEDS: Budesonide/Formoterol 160/4.5 1 PUFF INH IH SCH ×2 (07:45→20:03)
[2020-10-15] MEDS: Topiramate 25 MG TABLET PO SCH (08:08)
[2020-10-15] MEDS: amLODIPine 5 MG TABLET PO SCH (08:08)
[2020-10-15] MEDS: Lactobacillus 1 EACH CAP.SPRINK PO SCH (08:08)
[2020-10-15] MEDS: Pantoprazole 40 MG VIAL IVP SCH (08:08)
[2020-10-15] MEDS: Piperacillin/Tazobactam 3.375 GM in 0.9 % Sodium Chloride Mini Bag 100 ML IVPB SCH ×2 (08:09→18:16)
[2020-10-15] MEDS: clonazePAM 0.5 MG TABLET PO SCH ×2 (08:09→20:02)
[2020-10-15] MEDS: Furosemide 40 MG in 0.9 % Sodium Chloride 50 ML IV SCH ×2 (08:50→21:45)
[2020-10-15] MEDS: Docusate Oral Soln 100 MG/10 ML UDC GTUBE SCH (08:58)
[2020-10-15] MEDS: Potassium Chloride Elixir 20 MEQ/15 ML UDC GTUBE SCH (08:58)
[2020-10-15] MEDS: Valproic Acid Oral Soln 250 MG/5 ML UDC GTUBE SCH ×2 (08:58→20:02)
[2020-10-15] MEDS: Thiamine (B-1) 100 MG TABLET GTUBE SCH ×3 (08:59→20:02)
[2020-10-15] MEDS: QUEtiapine Fumarate 25 MG TABLET PO SCH (20:02)
[2020-10-16] MEDS: Insulin LISPRO 300 UNITS/3 ML VIAL SUBQ SCH ×4 (00:30→16:45)
[2020-10-16] MEDS: Piperacillin/Tazobactam 3.375 GM in 0.9 % Sodium Chloride Mini Bag 100 ML IVPB SCH ×3 (00:33→16:51)
[2020-10-16] MEDS: Ipratropium/Albuterol Neb 3 ML IH SCH ×6 (03:24→23:24)
[2020-10-16] MEDS: Acetylcysteine 10% 2 ML INHSOL IH SCH ×6 (03:25→23:24)
[2020-10-16] MEDS: Vancomycin 1,250 MG/262.5 ML IV.SOLN IVPB SCH ×3 (05:21→20:24)
[2020-10-16] MEDS: *HR* Heparin 5,000 UNIT/ML VIAL SQ SCH ×3 (05:24→20:37)
[2020-10-16 06:48] LABS: Basophils # 0.1 K/mcL (0.0-0.2); Basophils % 0.8 %; Eosinophils # 0.6 K/mcL (0.0-0.6); Eosinophils % 8.5 %; Hematocrit 36.2 % (37.5-50.1); Hemoglobin 10.8 g/dL (12.9-16.9); Immature Granulocytes % 0.3 % (0-4); Lymphocytes # 1.4 K/mcL (0.6-4.6); Lymphocytes % 19.2 %; Mean Corpuscular HGB Conc 29.8 g/dL (31.6-35.5); Mean Corpuscular Hemoglobin 28.9 pg (28.0-33.3); Mean Corpuscular Volume 96.8 fL (83.0-100.0); Mean Platelet Volume 8.4 fL (9.4-12.4); Monocytes # 0.4 K/mcL (0.0-1.3); Monocytes % 5.5 %; Neutrophils # 4.9 K/mcL (1.6-8.9); Platelet Count 235 K/mcL (140-400); Red Blood Count 3.74 M/mcL (4.19-5.50); Red Cell Distribution Width 12.8 % (11.5-14.5); Segmented Neutrophils % 65.7 %; White Blood Count 7.4 K/mcL (4.3-11.1)
[2020-10-16 07:02] LABS: BUN/Creatinine Ratio 26 (6-26); Blood Urea Nitrogen 14 mg/dL (6-20); Carbon Dioxide 36 mEq/L (23-29); Chloride 101 mEq/L (98-107); Glucose 108 mg/dL (70-105); Osmolality,Calculated 297 (280-300); Potassium 3.5 mEq/L (3.5-5.1); Sodium 143 mEq/L (136-145); eGFR For African Americans > 60 (> 60); eGFR For Non-African Americans > 60 (> 60)
[2020-10-16] MEDS: Budesonide/Formoterol 160/4.5 1 PUFF INH IH SCH ×2 (07:31→19:27)
[2020-10-16] MEDS ORDERED: Acetaminophen 325 MG TABLET PO PRN (09:55)
[2020-10-16] MEDS: Furosemide 40 MG in 0.9 % Sodium Chloride 50 ML IV SCH (10:02)
[2020-10-16] MEDS: Topiramate 25 MG TABLET PO SCH (10:09)
[2020-10-16] MEDS: Furosemide 40 MG/4 ML VIAL IVP SCH ×2 (10:09→16:50)
[2020-10-16] MEDS: Valproic Acid Oral Soln 250 MG/5 ML UDC GTUBE SCH (10:09)
[2020-10-16] MEDS: Potassium Chloride Elixir 20 MEQ/15 ML UDC GTUBE SCH (10:09)
[2020-10-16] MEDS: amLODIPine 5 MG TABLET PO SCH (10:10)
[2020-10-16] MEDS: Lactobacillus 1 EACH CAP.SPRINK PO SCH (10:10)
[2020-10-16] MEDS: Thiamine (B-1) 100 MG TABLET GTUBE SCH (10:10)
[2020-10-16] MEDS: clonazePAM 0.5 MG TABLET PO SCH ×2 (10:10→20:26)
[2020-10-16] MEDS: Pantoprazole 40 MG VIAL IVP SCH (10:11)
[2020-10-16] MEDS: Thiamine (B-1) 100 MG TABLET PO SCH ×2 (16:51→20:26)
[2020-10-16] MEDS: Divalproex (12 HR) 250 MG TABLET PO SCH (20:25)
[2020-10-16] MEDS: QUEtiapine Fumarate 25 MG TABLET PO SCH (20:26)
[2020-10-16] MEDS ORDERED: Insulin LISPRO 300 UNITS/3 ML VIAL SUBQ SCH (21:00)
[2020-10-17] MEDS: Piperacillin/Tazobactam 3.375 GM in 0.9 % Sodium Chloride Mini Bag 100 ML IVPB SCH ×2 (02:32→08:34)
[2020-10-17 02:37] LABS: Basophils # 0.1 K/mcL (0.0-0.2); Basophils % 0.6 %; Eosinophils # 0.6 K/mcL (0.0-0.6); Eosinophils % 6.1 %; Hematocrit 37.9 % (37.5-50.1); Hemoglobin 11.1 g/dL (12.9-16.9); Immature Granulocytes % 0.3 % (0-4); Lymphocytes # 1.9 K/mcL (0.6-4.6); Lymphocytes % 19.3 %; Mean Corpuscular HGB Conc 29.3 g/dL (31.6-35.5); Mean Corpuscular Hemoglobin 28.3 pg (28.0-33.3); Mean Corpuscular Volume 96.7 fL (83.0-100.0); Mean Platelet Volume 8.8 fL (9.4-12.4); Monocytes # 0.5 K/mcL (0.0-1.3); Monocytes % 4.7 %; Neutrophils # 6.7 K/mcL (1.6-8.9); Platelet Count 242 K/mcL (140-400); Red Blood Count 3.92 M/mcL (4.19-5.50); Red Cell Distribution Width 12.9 % (11.5-14.5); White Blood Count 9.7 K/mcL (4.3-11.1)
[2020-10-17 02:55] LABS: BUN/Creatinine Ratio 23 (6-26); Blood Urea Nitrogen 15 mg/dL (6-20); Calcium 8.9 mg/dL (8.6-10.3); Carbon Dioxide 36 mEq/L (23-29); Chloride 99 mEq/L (98-107); Glucose 135 mg/dL (70-105); Osmolality,Calculated 299 (280-300); Potassium 3.4 mEq/L (3.5-5.1); Sodium 143 mEq/L (136-145); eGFR For African Americans > 60 (> 60); eGFR For Non-African Americans > 60 (> 60)
[2020-10-17] MEDS: Ipratropium/Albuterol Neb 3 ML IH SCH ×4 (03:08→15:34)
[2020-10-17] MEDS: Acetylcysteine 10% 2 ML INHSOL IH SCH ×4 (03:08→15:34)
[2020-10-17] MEDS: Vancomycin 1,250 MG/262.5 ML IV.SOLN IVPB SCH ×2 (05:05→07:40)
[2020-10-17] MEDS: *HR* Heparin 5,000 UNIT/ML VIAL SQ SCH ×2 (05:05→18:46)
[2020-10-17] MEDS: Budesonide/Formoterol 160/4.5 1 PUFF INH IH SCH (07:46)
[2020-10-17] MEDS: Insulin LISPRO 300 UNITS/3 ML VIAL SUBQ SCH ×3 (07:55→17:29)
[2020-10-17] MEDS: Pantoprazole 40 MG VIAL IVP SCH (08:33)
[2020-10-17] MEDS: Furosemide 40 MG/4 ML VIAL IVP SCH ×2 (08:33→17:29)
[2020-10-17] MEDS: clonazePAM 0.5 MG TABLET PO SCH (08:38)
[2020-10-17] MEDS: amLODIPine 5 MG TABLET PO SCH (08:38)
[2020-10-17] MEDS: Lactobacillus 1 EACH CAP.SPRINK PO SCH (08:38)
[2020-10-17] MEDS: Topiramate 25 MG TABLET PO SCH (08:38)
[2020-10-17] MEDS: Divalproex (12 HR) 250 MG TABLET PO SCH (08:39)
[2020-10-17] MEDS: Thiamine (B-1) 100 MG TABLET PO SCH ×2 (08:39→18:46)
[2020-10-17 16:11] VITALS: BP 153/81
[2020-10-19] MEDS ORDERED: Thiamine (B-1) 100 MG TABLET PO SCH (09:00)
== END 2020-10-17 19:08 | DRG 207 ==
LOC: 2NENU 17:00 → EMEROOARM 17:00 → 2NENU 23:24 → ICNU 09-28 01:17 → SUATTDRO 09-28 02:39 → 2NNU 10-15 18:07
PROVIDERS: ADMIT Internal Medicine; ATTEND Student in an Organized Health Care Education/Training Program

== ENCOUNTER 2021-03-09 16:53 | Inpatient (IN) ==
[2021-03-09] MEDS ORDERED: Ipratropium/Albuterol Neb 3 ML IH ONE (17:01)
[2021-03-09] MEDS ORDERED: methylPREDNISolone 125 MG/2 ML VIAL IVP ONE (17:01)
[2021-03-09 17:31] LABS: Basophils % 0.2 %; Eosinophils % 0.2 %
[2021-03-09 17:33] LABS: Hematocrit 45.8 % (37.5-50.1); Hemoglobin 12.5 g/dL (12.9-16.9); Immature Granulocytes % 0.7 % (0-4); Immature Platelets 3.5 % (1.1-6.1); Lymphocytes # 1.1 K/mcL (0.6-4.6); Lymphocytes % 11.1 %; Mean Corpuscular HGB Conc 27.3 g/dL (31.6-35.5); Mean Corpuscular Hemoglobin 28.4 pg (28.0-33.3); Mean Corpuscular Volume 104.1 fL (83.0-100.0); Mean Platelet Volume 9.7 fL (9.4-12.4); Monocytes # 0.5 K/mcL (0.0-1.3); Monocytes % 5.1 %; Platelet Count 152 K/mcL (140-400); Red Cell Distribution Width 13.8 % (11.5-14.5); Segmented Neutrophils % 82.7 %; White Blood Count 9.5 K/mcL (4.3-11.1)
[2021-03-09 17:34] LABS: Neutrophils # 7.9 K/mcL (1.6-8.9)
[2021-03-09 18:04] LABS: Hypochromasia Present (Not Present)
[2021-03-09 18:06] LABS: Platelet Estimate Normal (Normal); Stomatocytes 1+ (Not Present)
[2021-03-09 18:14] LABS: Alanine Aminotransferase 14 Units/L (7-52); Albumin 4.1 g/dL (3.5-5.7); Albumin/Globulin Ratio 1.4 (1.1-2.2); Alkaline Phosphatase 55 Units/L (34-104); Aspartate Amino Transferase 10 Units/L (13-39); BUN/Creatinine Ratio 41 (6-26); Bilirubin,Direct 0.1 mg/dL (0.0-0.2); Bilirubin,Indirect 0.3 mg/dL (0.0-1.0); Bilirubin,Total 0.4 mg/dL (0.3-1.0); Blood Urea Nitrogen 20 mg/dL (6-20); Calcium 9.2 mg/dL (8.6-10.3); Carbon Dioxide > 45 mEq/L (23-29); Chloride 95 mEq/L (98-107); Creatine Kinase 24 Units/L (30-223); Globulin 2.9 g/dL (2.4-3.5); Glucose 135 mg/dL (70-105); Osmolality,Calculated 307 (280-300); Potassium 4.1 mEq/L (3.5-5.1); Sodium 146 mEq/L (136-145); Troponin I < 0.03 ng/mL (< 0.04); eGFR For African Americans > 60 (> 60); eGFR For Non-African Americans > 60 (> 60)
[2021-03-09 18:14] LABS: Influenza A PCR Negative (Negative); Influenza B PCR Negative (Negative); Resp. Syncytial Virus PCR Negative (Negative)
[2021-03-09 18:27] LABS: SARS-CoV-2 by PCR (In House) Negative (Negative)
[2021-03-09 18:47] LABS: Bilirubin,Urine Negative (Negative); Blood,Urine Negative (Negative); Budding Yeast,Urine Few per hpf (None Seen); Clarity,Urine Clear (Clear); Color,Urine Light-Yellow (Yellow); Glucose,Urine (UA) Normal (Normal); Ketones,Urine Negative (Negative); Leukocyte Esterase,Urine Large (Negative); Mucus,Urine Few per lpf (None-Few); Nitrite,Urine Negative (Negative); PH,Urine 6.5 pH Units (5.0-8.0); Protein,Urine Trace mg/dL (Neg-Trace); RBC,Urine 0-3 per hpf (0-3); Specific Gravity,Urine 1.019 (1.010-1.025); Squamous Epithelial Cell,Urine Few per hpf (None-Few); Urobilinogen,Urine Normal (Normal); WBC,Urine 30-50 per hpf (0-3)
[2021-03-09 18:48] LABS: ABG Base Excess 20 mEq/L (-2 to 3); ABG HCO3 56 mEq/L (21-27); ABG Oxygen Saturation 73 % (95-98); ABG PCO2 129 mmHg (35-45); ABG PH 7.24 pH Units (7.32-7.45); ABG PO2 50 mmHg (85-104); ABG TCO2 > 50 mEq/L (20-26); Blood Gas Modality avaps; Blood Gas VT 500 cc
[2021-03-09] MEDS ORDERED: Acetaminophen 325 MG TABLET PO PRN (19:44)
[2021-03-09] MEDS ORDERED: Melatonin 3 MG TABLET PO PRN (19:44)
[2021-03-09] MEDS ORDERED: Naloxone 0.4 MG/ML INJ IVP PRN (19:44)
[2021-03-09] MEDS ORDERED: Ondansetron 4 MG/2 ML VIAL IVP PRN (19:44)
[2021-03-09] MEDS ORDERED: D5% in Water 1,000 ML IVC PRN (19:47)
[2021-03-09] MEDS ORDERED: *HR* Dextrose 50 % in Water (Syg) 50 ML SYRINGE IVP PRN (19:47)
[2021-03-09] MEDS ORDERED: Dextrose Gel 15 GM/37.5 ML TUBE PO PRN ×2 (19:47)
[2021-03-09] MEDS ORDERED: Ipratropium/Albuterol Neb 3 ML IH PRN (19:48)
[2021-03-09 20:41] LABS: ABG Base Excess 14 mEq/L (-2 to 3); ABG HCO3 49 mEq/L (21-27); ABG Oxygen Saturation 82 % (95-98); ABG PCO2 126 mmHg (35-45); ABG PO2 61 mmHg (85-104); ABG TCO2 > 50 mEq/L (20-26); Blood Gas Modality avaps; Blood Gas VT 500 cc
[2021-03-09] MEDS: Ipratropium/Albuterol Neb 3 ML IH SCH ×2 (20:47→23:56)
[2021-03-09] MEDS: Ringers Solution, Lactated 1,000 ML IVC SCH (21:39)
[2021-03-09] MEDS: Lactulose Oral Soln 20 GM/30 ML UDC PO SCH (21:39)
[2021-03-09 22:17] LABS: ABG Base Excess 14 mEq/L (-2 to 3); ABG HCO3 45 mEq/L (21-27); ABG Oxygen Saturation 90 % (95-98); ABG PCO2 84 mmHg (35-45); ABG PH 7.33 pH Units (7.32-7.45); ABG PO2 67 mmHg (85-104); ABG TCO2 47 mEq/L (20-26); Blood Gas Modality avaps; Blood Gas VT 600 cc
[2021-03-09] MEDS ORDERED: levoFLOXacin 750 MG/150 ML 750 MG/150 ML BAG IVPB ONE (22:24)
[2021-03-09] MEDS ORDERED: *HR* LORazepam 2 MG/ML VIAL IVP ONE (23:39)
[2021-03-09] MEDS ORDERED: *HR* LORazepam 2 MG/ML VIAL ONE (23:46)
[2021-03-10] MEDS: Insulin LISPRO 300 UNITS/3 ML VIAL SUBQ SCH ×3 (00:30→11:29)
[2021-03-10] MEDS: Ipratropium/Albuterol Neb 3 ML IH SCH ×6 (04:09→23:51)
[2021-03-10] MEDS: *HR* Enoxaparin 40 MG/0.4 ML SYRINGE SQ SCH (05:11)
[2021-03-10 06:38] LABS: Basophils % 0.1 %; Hemoglobin 11.7 g/dL (12.9-16.9); Immature Granulocytes % 0.4 % (0-4)
[2021-03-10 06:39] LABS: Hematocrit 39.4 % (37.5-50.1); Lymphocytes # 1.3 K/mcL (0.6-4.6); Lymphocytes % 14.3 %; Mean Corpuscular HGB Conc 29.7 g/dL (31.6-35.5); Mean Corpuscular Hemoglobin 29.4 pg (28.0-33.3); Mean Platelet Volume 9.4 fL (9.4-12.4); Monocytes # 0.5 K/mcL (0.0-1.3); Monocytes % 5.7 %; Platelet Count 152 K/mcL (140-400); Red Blood Count 3.98 M/mcL (4.19-5.50); Red Cell Distribution Width 13.6 % (11.5-14.5); Segmented Neutrophils % 79.5 %
[2021-03-10 06:40] LABS: Neutrophils # 7.2 K/mcL (1.6-8.9)
[2021-03-10 06:45] LABS: INR 1.2; Prothrombin Time 13.8 Seconds (9.4-12.1)
[2021-03-10 07:04] LABS: BUN/Creatinine Ratio 31 (6-26); Blood Urea Nitrogen 20 mg/dL (6-20); Calcium 9.5 mg/dL (8.6-10.3); Carbon Dioxide 45 mEq/L (23-29); Chloride 94 mEq/L (98-107); Glucose 120 mg/dL (70-105); Magnesium 1.9 mg/dL (1.6-2.6); Osmolality,Calculated 302 (280-300); Potassium 3.7 mEq/L (3.5-5.1); Sodium 144 mEq/L (136-145); eGFR For African Americans > 60 (> 60); eGFR For Non-African Americans > 60 (> 60)
[2021-03-10] MEDS ORDERED: Haloperidol Lactate 5 MG/ML VIAL IVP ONE (08:02)
[2021-03-10] MEDS: Lactulose Oral Soln 20 GM/30 ML UDC PO SCH ×4 (08:16→21:12)
[2021-03-10] MEDS: Ringers Solution, Lactated 1,000 ML IVC SCH (08:24)
[2021-03-10 09:01] LABS: Adenovirus Not Detected (Not Detect); Bordetella Pertussis Not Detected (Not Detect); Chlamydophila pneumoniae Not Detected (Not Detect); Coronavirus 229E Not Detected (Not Detect); Coronavirus HKU1 Not Detected (Not Detect); Coronavirus NL63 Not Detected (Not Detect); Coronavirus OC43 Not Detected (Not Detect); Human Metapneumovirus Not Detected (Not Detect); Human Rhinovirus/Enterovirus Not Detected (Not Detect); Influenza A Subtype 2009 H1 Not Detected (Not Detect); Influenza B Not Detected (Not Detect); Mycoplasma pneumoniae Not Detected (Not Detect); Parainfluenza Virus 1 Not Detected (Not Detect); Parainfluenza Virus 2 Not Detected (Not Detect); Parainfluenza Virus 3 Not Detected (Not Detect); Parainfluenza Virus 4 Not Detected (Not Detect); Respiratory Syncytial Virus Not Detected (Not Detect); SARS-CoV-2 Not Detected (Not Detect)
[2021-03-10] MEDS: Haloperidol Lactate 5 MG/ML VIAL IVP PRN ×2 (14:52→21:12)
[2021-03-10] MEDS ORDERED: Furosemide 40 MG/4 ML VIAL IVP ONE (15:00)
[2021-03-10 15:37] LABS: ABG Base Excess 18 mEq/L (-2 to 3); ABG HCO3 45 mEq/L (21-27); ABG Oxygen Saturation 87 % (95-98); ABG PCO2 62 mmHg (35-45); ABG PH 7.47 pH Units (7.32-7.45); ABG PO2 53 mmHg (85-104); ABG TCO2 47 mEq/L (20-26)
[2021-03-10] MEDS: levoFLOXacin 750 MG/150 ML 750 MG/150 ML BAG IVPB SCH (21:12)
[2021-03-11] MEDS: Haloperidol Lactate 5 MG/ML VIAL IVP PRN ×2 (02:52→22:23)
[2021-03-11 03:16] LABS: Hematocrit 37.7 % (37.5-50.1); Hemoglobin 11.5 g/dL (12.9-16.9); Mean Corpuscular HGB Conc 30.5 g/dL (31.6-35.5); Mean Corpuscular Hemoglobin 29.3 pg (28.0-33.3); Mean Corpuscular Volume 95.9 fL (83.0-100.0); Mean Platelet Volume 9.2 fL (9.4-12.4); Platelet Count 156 K/mcL (140-400); Red Blood Count 3.93 M/mcL (4.19-5.50); Red Cell Distribution Width 14.3 % (11.5-14.5); White Blood Count 8.2 K/mcL (4.3-11.1)
[2021-03-11 03:38] LABS: BUN/Creatinine Ratio 27 (6-26); Blood Urea Nitrogen 20 mg/dL (6-20); Calcium 8.9 mg/dL (8.6-10.3); Carbon Dioxide 41 mEq/L (23-29); Chloride 96 mEq/L (98-107); Glucose 120 mg/dL (70-105); Osmolality,Calculated 298 (280-300); Potassium 3.2 mEq/L (3.5-5.1); Sodium 142 mEq/L (136-145); eGFR For African Americans > 60 (> 60); eGFR For Non-African Americans > 60 (> 60)
[2021-03-11] MEDS: Ipratropium/Albuterol Neb 3 ML IH SCH ×6 (04:00→23:43)
[2021-03-11] MEDS: *HR* Enoxaparin 40 MG/0.4 ML SYRINGE SQ SCH (06:07)
[2021-03-11] MEDS: Furosemide 40 MG/4 ML VIAL IVP SCH (10:05)
[2021-03-11] MEDS: Lactulose Oral Soln 20 GM/30 ML UDC PO SCH ×4 (10:05→21:47)
[2021-03-11] MEDS: MethylPREDNISolone 40 MG/ML VIAL IVP SCH (10:08)
[2021-03-11] MEDS: Gabapentin 300 MG CAPSULE PO SCH ×2 (15:08→22:22)
[2021-03-11] MEDS ORDERED: Budesonide/Formoterol 80/4.5 1 PUFF INH IH SCH (21:00)
[2021-03-11] MEDS: Topiramate 25 MG TABLET PO SCH (22:22)
[2021-03-11] MEDS: Divalproex Sodium 125 MG Sprinkle Capsule (DR) PO SCH (22:22)
[2021-03-11] MEDS: Doxycycline 100 MG CAPSULE PO SCH (22:22)
[2021-03-11] MEDS: levoFLOXacin 750 MG/150 ML 750 MG/150 ML BAG IVPB SCH (22:22)
[2021-03-11] MEDS: QUEtiapine Fumarate 25 MG TABLET PO SCH (22:22)
[2021-03-11] MEDS: Divalproex (12 HR) 250 MG TABLET PO SCH (22:22)
[2021-03-12] MEDS: Ipratropium/Albuterol Neb 3 ML IH SCH ×4 (04:09→15:20)
[2021-03-12] MEDS: *HR* Enoxaparin 40 MG/0.4 ML SYRINGE SQ SCH (06:06)
[2021-03-12 08:22] LABS: Hematocrit 40.7 % (37.5-50.1); Hemoglobin 12.5 g/dL (12.9-16.9); Mean Corpuscular HGB Conc 30.7 g/dL (31.6-35.5); Mean Corpuscular Hemoglobin 28.7 pg (28.0-33.3); Mean Corpuscular Volume 93.6 fL (83.0-100.0); Mean Platelet Volume 10.2 fL (9.4-12.4); Platelet Count 167 K/mcL (140-400); Red Blood Count 4.35 M/mcL (4.19-5.50); Red Cell Distribution Width 14.1 % (11.5-14.5)
[2021-03-12] MEDS ORDERED: Lactobacillus 1 EACH CAP.SPRINK PO SCH (09:00)
[2021-03-12] MEDS ORDERED: amLODIPine 5 MG TABLET PO SCH (09:00)
[2021-03-12 09:52] LABS: Alanine Aminotransferase 13 Units/L (7-52); Albumin 3.8 g/dL (3.5-5.7); Albumin/Globulin Ratio 1.4 (1.1-2.2); Alkaline Phosphatase 52 Units/L (34-104); Aspartate Amino Transferase 15 Units/L (13-39); BUN/Creatinine Ratio 25 (6-26); Bilirubin,Indirect 0.5 mg/dL (0.0-1.0); Bilirubin,Total 0.5 mg/dL (0.3-1.0); Blood Urea Nitrogen 17 mg/dL (6-20); Calcium 8.9 mg/dL (8.6-10.3); Carbon Dioxide 36 mEq/L (23-29); Chloride 99 mEq/L (98-107); Globulin 2.8 g/dL (2.4-3.5); Glucose 100 mg/dL (70-105); Osmolality,Calculated 296 (280-300); Sodium 142 mEq/L (136-145); Total Protein 6.6 g/dL (6.4-8.9); eGFR For African Americans > 60 (> 60); eGFR For Non-African Americans > 60 (> 60)
[2021-03-12] MEDS: Divalproex Sodium 125 MG Sprinkle Capsule (DR) PO SCH (10:41)
[2021-03-12] MEDS: QUEtiapine Fumarate 25 MG TABLET PO SCH (10:41)
[2021-03-12] MEDS: Topiramate 25 MG TABLET PO SCH (10:42)
[2021-03-12] MEDS: Doxycycline 100 MG CAPSULE PO SCH (10:42)
[2021-03-12] MEDS: metroNIDAZOLE 500 MG TABLET PO SCH ×2 (10:42→16:29)
[2021-03-12] MEDS: Divalproex (12 HR) 250 MG TABLET PO SCH (10:42)
[2021-03-12] MEDS: Gabapentin 300 MG CAPSULE PO SCH ×2 (10:42→16:29)
[2021-03-12] MEDS: Furosemide 40 MG/4 ML VIAL IVP SCH (10:49)
[2021-03-12] MEDS: MethylPREDNISolone 40 MG/ML VIAL IVP SCH (10:51)
[2021-03-12] MEDS ORDERED: Vancomycin 1,250 MG/262.5 ML IV.SOLN IVPB SCH (11:00)
[2021-03-12] MEDS: Lactulose Oral Soln 20 GM/30 ML UDC PO SCH ×2 (11:37→16:29)
[2021-03-12 15:45] VITALS: BP 118/47; PULSE 65; TEMP 100.2; O2SAT 91
[2021-03-13 01:18] LABS: Acinetobacter baumannii by PCR Not Detected (Not Detect); Candida albicans by PCR Not Detected (Not Detect); Candida glabrata by PCR Not Detected (Not Detect); Candida krusei by PCR Not Detected (Not Detect); Candida parapsilosis by PCR Not Detected (Not Detect); Candida tropicalis by PCR Not Detected (Not Detect); Enterobacter cloacae Cmplx PCR Not Detected (Not Detect); Enterobacteriaceae by PCR Not Detected (Not Detect); Enterococcus by PCR Not Detected (Not Detect); Escherichia coli by PCR Not Detected (Not Detect); Klebsiella oxytoca by PCR Not Detected (Not Detect); Klebsiella pneumoniae by PCR Not Detected (Not Detect); Proteus by PCR Not Detected (Not Detect); Pseudomonas aeruginosa by PCR Not Detected (Not Detect); Serratia marcescens by PCR Not Detected (Not Detect); Staphylococcus aureus by PCR Not Detected (Not Detect); Staphylococcus by PCR Not Detected (Not Detect); Streptococcus agalactiae(B)PCR Not Detected (Not Detect); Streptococcus by PCR Not Detected (Not Detect); Streptococcus pneumoniae PCR Not Detected (Not Detect); Streptococcus pyogenes (A) PCR Not Detected (Not Detect); mecA Methicillin-Resist Gene Not Detected (Not Detect); vanA/B Vancomycin-Resist Genes Not Detected (Not Detect)
== END 2021-03-12 17:10 | DRG 193 ==
LOC: EMEROOARM 16:53 → SUATTDRO 20:30 → ICNU 20:30 → 2NENU 03-10 06:49
PROVIDERS: ADMIT Family Medicine; ATTEND Internal Medicine

== ENCOUNTER 2021-05-19 11:42 | Inpatient (IN) ==
[2021-05-19] MEDS ORDERED: Naloxone 0.4 MG/ML INJ IVP ONE (11:47)
[2021-05-19 12:06] LABS: Hemoglobin 11.9 g/dL (12.9-16.9); Monocytes % 7.6 %; Red Cell Distribution Width 12.7 % (11.5-14.5)
[2021-05-19 12:08] LABS: Basophils % 0.3 %; Eosinophils # 0.1 K/mcL (0.0-0.6); Eosinophils % 0.9 %; Hematocrit 42.9 % (37.5-50.1); Immature Granulocytes % 0.4 % (0-4); Lymphocytes # 1.4 K/mcL (0.6-4.6); Lymphocytes % 19.9 %; Mean Corpuscular HGB Conc 27.7 g/dL (31.6-35.5); Mean Corpuscular Hemoglobin 28.8 pg (28.0-33.3); Mean Corpuscular Volume 103.9 fL (83.0-100.0); Monocytes # 0.5 K/mcL (0.0-1.3); Platelet Count 135 K/mcL (140-400); Red Blood Count 4.13 M/mcL (4.19-5.50); Segmented Neutrophils % 70.9 %
[2021-05-19 12:15] LABS: INR 1.1; Prothrombin Time 11.7 Seconds (9.4-12.1)
[2021-05-19 12:17] LABS: Activated Partial Thrombo Time 34.3 Seconds (26.0-36.0)
[2021-05-19 12:40] LABS: Alanine Aminotransferase 25 Units/L (7-52); Albumin 3.9 g/dL (3.5-5.7); Albumin/Globulin Ratio 1.4 (1.1-2.2); Alkaline Phosphatase 64 Units/L (34-104); Aspartate Amino Transferase 15 Units/L (13-39); BUN/Creatinine Ratio 27 (6-26); Bilirubin,Indirect 0.3 mg/dL (0.0-1.0); Bilirubin,Total 0.3 mg/dL (0.3-1.0); Blood Urea Nitrogen 17 mg/dL (6-20); Carbon Dioxide > 45 mEq/L (23-29); Chloride 96 mEq/L (98-107); Creatine Kinase 25 Units/L (30-223); Ethanol < 10 mg/dL (Less than 10); Globulin 2.8 g/dL (2.4-3.5); Glucose 142 mg/dL (70-105); Osmolality,Calculated 310 (280-300); Potassium 4.1 mEq/L (3.5-5.1); Sodium 148 mEq/L (136-145); Total Protein 6.7 g/dL (6.4-8.9); Troponin I < 0.03 ng/mL (< 0.04); eGFR For African Americans > 60 (> 60); eGFR For Non-African Americans > 60 (> 60)
[2021-05-19 12:49] LABS: Anisocytosis 1+ (Not Present); Hypochromasia Present (Not Present); Platelet Estimate Slight Decrease (Normal)
[2021-05-19] MEDS ORDERED: Naloxone 0.4 MG/ML INJ IVP PRN (16:02)
[2021-05-19 17:11] LABS: Bacteria,Urine Few per hpf (None-Few); Bilirubin,Urine Negative (Negative); Blood,Urine Negative (Negative); Clarity,Urine Clear (Clear); Color,Urine Light-Yellow (Yellow); Glucose,Urine (UA) Normal (Normal); Hyaline Casts,Urine Few per lpf (None Seen); Ketones,Urine Negative (Negative); Leukocyte Esterase,Urine Large (Negative); Mucus,Urine Few per lpf (None-Few); Nitrite,Urine Negative (Negative); Protein,Urine Negative (Neg-Trace); Specific Gravity,Urine 1.014 (1.010-1.025); Squamous Epithelial Cell,Urine Few per hpf (None-Few); Urobilinogen,Urine Normal (Normal); WBC,Urine 50-100 per hpf (0-3)
[2021-05-19] MEDS ORDERED: Dextrose Gel 15 GM/37.5 ML TUBE PO PRN ×2 (17:40)
[2021-05-19] MEDS ORDERED: D5% in Water 1,000 ML IVC PRN (17:40)
[2021-05-19] MEDS ORDERED: *HR* Dextrose 50 % in Water (Syg) 50 ML SYRINGE IVP PRN (17:40)
[2021-05-19] MEDS ORDERED: Furosemide 20 MG/2 ML VIAL IVP ONE (17:41)
[2021-05-19] MEDS ORDERED: Lactulose 200 GM, Sodium Chloride IRRigation 700 ML RC ONE ×2 (17:43→21:42)
[2021-05-19 18:28] LABS: ABG Base Excess 23 mEq/L (-2 to 3); ABG Chloride 90 mEq/L (98-107); ABG Glucose 121 mg/dL (60-95); ABG HCO3 59 mEq/L (21-27); ABG Ionized Calcium 1.24 mmol/L (1.15-1.35); ABG Oxygen Saturation 75 % (95-98); ABG PCO2 139 mmHg (35-45); ABG PH 7.23 pH Units (7.32-7.45); ABG PO2 54 mmHg (85-104); ABG TCO2 > 50 mEq/L (20-26); Blood Gas Modality avaps; Blood Gas VT 500 cc
[2021-05-19] MEDS: Budesonide/Formoterol 80/4.5 1 PUFF INH IH SCH (19:42)
[2021-05-19] MEDS: Ipratropium/Albuterol Neb 3 ML IH SCH ×2 (19:42→23:21)
[2021-05-19] MEDS: Insulin LISPRO 300 UNITS/3 ML VIAL SUBQ SCH (19:45)
[2021-05-19 19:58] LABS: Amphetamine Screen,Urine Negative ng/mL (Cutoff=1000); Barbiturate Screen,Urine Negative ng/mL (Cutoff=200); Benzodiazepines Screen,Urine Negative ng/mL (Cutoff=200); Cannabinoid Screen,Urine Negative ng/mL (Cutoff = 50); Cocaine Screen,Urine Negative ng/mL (Cutoff= 300); Opiate Screen,Urine Negative ng/mL (Cutoff=300); Phencyclidine Screen,Urine Negative ng/mL (Cutoff=25)
[2021-05-19] MEDS: *HR* Enoxaparin 40 MG/0.4 ML SYRINGE SQ SCH (20:04)
[2021-05-19] MEDS: Topiramate 25 MG TABLET PO SCH (23:48)
[2021-05-19] MEDS: Divalproex Sodium 125 MG Sprinkle Capsule (DR) PO SCH (23:48)
[2021-05-19] MEDS: Melatonin 3 MG TABLET PO SCH (23:48)
[2021-05-19] MEDS: Lactulose Oral Soln 20 GM/30 ML UDC PO SCH (23:48)
[2021-05-19] MEDS: QUEtiapine Fumarate 25 MG TABLET PO SCH (23:48)
[2021-05-19] MEDS: Gabapentin 300 MG CAPSULE PO SCH (23:48)
[2021-05-20] MEDS: Insulin LISPRO 300 UNITS/3 ML VIAL SUBQ SCH ×5 (00:17→19:44)
[2021-05-20] MEDS ORDERED: Haloperidol Lactate 5 MG/ML VIAL IVP ONE (00:45)
[2021-05-20] MEDS: Divalproex (12 HR) 250 MG TABLET PO SCH ×3 (00:54→20:02)
[2021-05-20] MEDS: Ipratropium/Albuterol Neb 3 ML IH SCH ×6 (05:08→23:26)
[2021-05-20 05:17] LABS: Basophils % 0.4 %; Eosinophils % 1.4 %; Hemoglobin 11.5 g/dL (12.9-16.9); Red Cell Distribution Width 12.8 % (11.5-14.5)
[2021-05-20 05:19] LABS: Eosinophils # 0.1 K/mcL (0.0-0.6); Hematocrit 40.7 % (37.5-50.1); Immature Granulocytes % 0.3 % (0-4); Immature Platelets 2.8 % (1.1-6.1); Lymphocytes # 1.7 K/mcL (0.6-4.6); Mean Corpuscular HGB Conc 28.3 g/dL (31.6-35.5); Mean Corpuscular Hemoglobin 28.7 pg (28.0-33.3); Mean Corpuscular Volume 101.5 fL (83.0-100.0); Mean Platelet Volume 9.3 fL (9.4-12.4); Monocytes # 0.7 K/mcL (0.0-1.3); Neutrophils # 4.7 K/mcL (1.6-8.9); Platelet Count 159 K/mcL (140-400); Red Blood Count 4.01 M/mcL (4.19-5.50); Segmented Neutrophils % 64.9 %; White Blood Count 7.2 K/mcL (4.3-11.1)
[2021-05-20] MEDS: *HR* Enoxaparin 40 MG/0.4 ML SYRINGE SQ SCH ×2 (05:47→16:22)
[2021-05-20 05:57] LABS: BUN/Creatinine Ratio 29 (6-26); Blood Urea Nitrogen 16 mg/dL (6-20); Calcium 9.2 mg/dL (8.6-10.3); Carbon Dioxide > 45 mEq/L (23-29); Chloride 95 mEq/L (98-107); Glucose 94 mg/dL (70-105); Osmolality,Calculated 307 (280-300); Sodium 148 mEq/L (136-145); eGFR For African Americans > 60 (> 60); eGFR For Non-African Americans > 60 (> 60)
[2021-05-20] MEDS: Budesonide/Formoterol 80/4.5 1 PUFF INH IH SCH ×2 (07:07→19:40)
[2021-05-20] MEDS ORDERED: acetaZOLAMIDE 250 MG in Water for inj. (sterile) 2.5 ML IVP ONE (07:35)
[2021-05-20] MEDS: QUEtiapine Fumarate 25 MG TABLET PO SCH ×2 (08:48→20:02)
[2021-05-20] MEDS: Gabapentin 300 MG CAPSULE PO SCH ×3 (08:49→20:02)
[2021-05-20] MEDS: Lactobacillus 1 EACH CAP.SPRINK PO SCH (08:49)
[2021-05-20] MEDS: Divalproex Sodium 125 MG Sprinkle Capsule (DR) PO SCH ×2 (08:49→20:02)
[2021-05-20] MEDS: amLODIPine 5 MG TABLET PO SCH (08:49)
[2021-05-20] MEDS: Topiramate 25 MG TABLET PO SCH ×2 (08:50→20:02)
[2021-05-20] MEDS: Lactulose Oral Soln 20 GM/30 ML UDC PO SCH ×3 (08:51→20:02)
[2021-05-20] MEDS ORDERED: Furosemide 40 MG/4 ML VIAL IVP SCH (09:00)
[2021-05-20] MEDS ORDERED: Ketorolac 30 MG/ML VIAL IVP ONE (10:15)
[2021-05-20] MEDS ORDERED: *HR* LORazepam 2 MG/ML VIAL IVP ONE (10:18)
[2021-05-20] MEDS: *HR* HYDROcodone/Acet 5/325 mg TABLET PO PRN ×2 (16:22→21:57)
[2021-05-20] MEDS: hydrOXYzine pamoate 25 MG CAPSULE PO PRN ×2 (16:22→23:22)
[2021-05-20] MEDS: Eucerin Cream 57 GM TUBE TP SCH (17:33)
[2021-05-20 18:36] LABS: ABG Base Excess 16 mEq/L (-2 to 3); ABG HCO3 46 mEq/L (21-27); ABG Oxygen Saturation 89 % (95-98); ABG PCO2 83 mmHg (35-45); ABG PH 7.36 pH Units (7.32-7.45); ABG PO2 63 mmHg (85-104); ABG TCO2 49 mEq/L (20-26)
[2021-05-20] MEDS: Melatonin 3 MG TABLET PO SCH (20:02)
[2021-05-21] MEDS: Ipratropium/Albuterol Neb 3 ML IH SCH ×5 (03:38→20:43)
[2021-05-21] MEDS: *HR* Enoxaparin 40 MG/0.4 ML SYRINGE SQ SCH ×2 (05:34→17:56)
[2021-05-21] MEDS: Budesonide/Formoterol 80/4.5 1 PUFF INH IH SCH ×2 (07:18→20:43)
[2021-05-21] MEDS: Gabapentin 300 MG CAPSULE PO SCH ×3 (07:43→20:58)
[2021-05-21] MEDS: Lactobacillus 1 EACH CAP.SPRINK PO SCH (07:43)
[2021-05-21] MEDS: Topiramate 25 MG TABLET PO SCH ×2 (07:43→20:58)
[2021-05-21 07:49] LABS: Hemoglobin 11.1 g/dL (12.9-16.9)
[2021-05-21] MEDS: Lactulose Oral Soln 20 GM/30 ML UDC PO SCH ×3 (07:49→20:58)
[2021-05-21] MEDS: QUEtiapine Fumarate 25 MG TABLET PO SCH ×2 (07:49→20:58)
[2021-05-21] MEDS: hydrOXYzine pamoate 25 MG CAPSULE PO PRN ×2 (07:49→15:58)
[2021-05-21] MEDS: *HR* HYDROcodone/Acet 5/325 mg TABLET PO PRN ×2 (07:49→15:57)
[2021-05-21] MEDS: amLODIPine 5 MG TABLET PO SCH (07:49)
[2021-05-21] MEDS: Divalproex Sodium 125 MG Sprinkle Capsule (DR) PO SCH ×2 (07:49→20:58)
[2021-05-21] MEDS: Divalproex (12 HR) 250 MG TABLET PO SCH ×2 (07:49→20:58)
[2021-05-21 07:50] LABS: Basophils % 0.2 %; Eosinophils # 0.1 K/mcL (0.0-0.6); Eosinophils % 2.1 %; Hematocrit 37.9 % (37.5-50.1); Immature Granulocytes % 0.5 % (0-4); Lymphocytes % 21.9 %; Mean Corpuscular HGB Conc 29.3 g/dL (31.6-35.5); Mean Corpuscular Hemoglobin 28.4 pg (28.0-33.3); Mean Corpuscular Volume 96.9 fL (83.0-100.0); Mean Platelet Volume 9.6 fL (9.4-12.4); Monocytes # 0.5 K/mcL (0.0-1.3); Monocytes % 7.6 %; Neutrophils # 4.5 K/mcL (1.6-8.9); Platelet Count 134 K/mcL (140-400); Red Blood Count 3.91 M/mcL (4.19-5.50); Red Cell Distribution Width 13.1 % (11.5-14.5); Segmented Neutrophils % 67.7 %; White Blood Count 6.6 K/mcL (4.3-11.1)
[2021-05-21] MEDS: Insulin LISPRO 300 UNITS/3 ML VIAL SUBQ SCH ×4 (07:50→20:47)
[2021-05-21] MEDS: Eucerin Cream 57 GM TUBE TP SCH (07:50)
[2021-05-21 07:52] LABS: BUN/Creatinine Ratio 21 (6-26); Blood Urea Nitrogen 13 mg/dL (6-20); Calcium 8.3 mg/dL (8.6-10.3); Carbon Dioxide 38 mEq/L (23-29); Chloride 98 mEq/L (98-107); Glucose 88 mg/dL (70-105); Osmolality,Calculated 290 (280-300); Sodium 140 mEq/L (136-145); eGFR For African Americans > 60 (> 60); eGFR For Non-African Americans > 60 (> 60)
[2021-05-21 08:18] LABS: Lymphocytes # 1.5 K/mcL (0.6-4.6)
[2021-05-21 09:41] LABS: Anisocytosis 1+ (Not Present); Platelet Estimate Slight Decrease (Normal)
[2021-05-21] MEDS: Furosemide 40 MG TABLET PO SCH (15:58)
[2021-05-21] MEDS: lisinopriL 5 MG TABLET PO SCH (15:58)
[2021-05-21] MEDS: Melatonin 3 MG TABLET PO SCH (20:58)
[2021-05-22] MEDS: Ipratropium/Albuterol Neb 3 ML IH SCH ×7 (00:10→23:55)
[2021-05-22 02:04] LABS: Basophils % 0.1 %; Eosinophils # 0.1 K/mcL (0.0-0.6); Eosinophils % 1.5 %; Hematocrit 40.9 % (37.5-50.1); Hemoglobin 12.2 g/dL (12.9-16.9); Immature Granulocytes % 0.4 % (0-4); Immature Platelets 2.3 % (1.1-6.1); Lymphocytes # 1.6 K/mcL (0.6-4.6); Lymphocytes % 21.2 %; Mean Corpuscular HGB Conc 29.8 g/dL (31.6-35.5); Mean Corpuscular Hemoglobin 28.6 pg (28.0-33.3); Mean Platelet Volume 9.5 fL (9.4-12.4); Monocytes # 0.5 K/mcL (0.0-1.3); Monocytes % 6.4 %; Neutrophils # 5.1 K/mcL (1.6-8.9); Platelet Count 139 K/mcL (140-400); Red Blood Count 4.26 M/mcL (4.19-5.50); Red Cell Distribution Width 13.3 % (11.5-14.5); Segmented Neutrophils % 70.4 %; White Blood Count 7.3 K/mcL (4.3-11.1)
[2021-05-22 02:20] LABS: BUN/Creatinine Ratio 23 (6-26); Blood Urea Nitrogen 12 mg/dL (6-20); Calcium 8.6 mg/dL (8.6-10.3); Carbon Dioxide 36 mEq/L (23-29); Chloride 98 mEq/L (98-107); Glucose 100 mg/dL (70-105); Osmolality,Calculated 290 (280-300); Potassium 3.6 mEq/L (3.5-5.1); Sodium 140 mEq/L (136-145); eGFR For African Americans > 60 (> 60); eGFR For Non-African Americans > 60 (> 60)
[2021-05-22] MEDS: *HR* Enoxaparin 40 MG/0.4 ML SYRINGE SQ SCH ×2 (06:48→18:17)
[2021-05-22] MEDS: Budesonide/Formoterol 80/4.5 1 PUFF INH IH SCH ×2 (07:29→20:54)
[2021-05-22] MEDS: Insulin LISPRO 300 UNITS/3 ML VIAL SUBQ SCH ×3 (07:43→18:16)
[2021-05-22] MEDS: amLODIPine 5 MG TABLET PO SCH (09:24)
[2021-05-22] MEDS: Lactulose Oral Soln 20 GM/30 ML UDC PO SCH ×3 (09:24→20:08)
[2021-05-22] MEDS: Divalproex (12 HR) 250 MG TABLET PO SCH ×2 (09:25→20:07)
[2021-05-22] MEDS: Gabapentin 300 MG CAPSULE PO SCH ×3 (09:25→20:07)
[2021-05-22] MEDS: Topiramate 25 MG TABLET PO SCH ×2 (09:25→20:08)
[2021-05-22] MEDS: Furosemide 40 MG TABLET PO SCH (09:25)
[2021-05-22] MEDS: hydrOXYzine pamoate 25 MG CAPSULE PO PRN (09:25)
[2021-05-22] MEDS: Divalproex Sodium 125 MG Sprinkle Capsule (DR) PO SCH ×2 (09:25→20:06)
[2021-05-22] MEDS: *HR* HYDROcodone/Acet 5/325 mg TABLET PO PRN (09:26)
[2021-05-22] MEDS: QUEtiapine Fumarate 25 MG TABLET PO SCH ×2 (09:26→20:07)
[2021-05-22] MEDS: lisinopriL 5 MG TABLET PO SCH (09:26)
[2021-05-22] MEDS: Lactobacillus 1 EACH CAP.SPRINK PO SCH (09:26)
[2021-05-22] MEDS: Eucerin Cream 57 GM TUBE TP SCH (09:26)
[2021-05-22 13:03] LABS: VBG HCO3 41 mEq/L (21-27); VBG PCO2 82 mmHg (41-51); VBG PO2 72 mmHg (25-50)
[2021-05-22] MEDS: Melatonin 3 MG TABLET PO SCH (20:07)
[2021-05-22] MEDS: Sulfacetamide Sodium 10% OPTH 15 ML BOTTLE RIGHT EYE SCH (22:06)
[2021-05-22] MEDS: Sulfacetamide Sodium 10% OPTH 15 ML BOTTLE LEFT EYE SCH (22:06)
[2021-05-23] MEDS: Ipratropium/Albuterol Neb 3 ML IH SCH ×3 (04:02→11:23)
[2021-05-23 04:41] LABS: Basophils % 0.1 %; Eosinophils # 0.2 K/mcL (0.0-0.6); Eosinophils % 2.1 %; Hematocrit 38.6 % (37.5-50.1); Hemoglobin 11.5 g/dL (12.9-16.9); Immature Granulocytes % 0.4 % (0-4); Lymphocytes # 1.2 K/mcL (0.6-4.6); Lymphocytes % 15.9 %; Mean Corpuscular HGB Conc 29.8 g/dL (31.6-35.5); Mean Corpuscular Hemoglobin 28.2 pg (28.0-33.3); Mean Corpuscular Volume 94.6 fL (83.0-100.0); Mean Platelet Volume 9.3 fL (9.4-12.4); Monocytes # 0.5 K/mcL (0.0-1.3); Monocytes % 6.7 %; Neutrophils # 5.8 K/mcL (1.6-8.9); Platelet Count 128 K/mcL (140-400); Red Blood Count 4.08 M/mcL (4.19-5.50); Red Cell Distribution Width 13.1 % (11.5-14.5); Segmented Neutrophils % 74.8 %; White Blood Count 7.7 K/mcL (4.3-11.1)
[2021-05-23 04:56] LABS: BUN/Creatinine Ratio 21 (6-26); Blood Urea Nitrogen 12 mg/dL (6-20); Calcium 8.4 mg/dL (8.6-10.3); Carbon Dioxide 35 mEq/L (23-29); Chloride 100 mEq/L (98-107); Glucose 106 mg/dL (70-105); Osmolality,Calculated 290 (280-300); Potassium 3.7 mEq/L (3.5-5.1); Sodium 140 mEq/L (136-145); eGFR For African Americans > 60 (> 60); eGFR For Non-African Americans > 60 (> 60)
[2021-05-23] MEDS: *HR* Enoxaparin 40 MG/0.4 ML SYRINGE SQ SCH (05:05)
[2021-05-23 05:33] LABS: VBG HCO3 37 mEq/L (21-27); VBG PCO2 67 mmHg (41-51); VBG PH 7.35 pH Units (7.32-7.42); VBG PO2 192 mmHg (25-50)
[2021-05-23 07:14] VITALS: BP 148/75; PULSE 102; TEMP 98.5; O2SAT 93
[2021-05-23] MEDS: Insulin LISPRO 300 UNITS/3 ML VIAL SUBQ SCH ×3 (07:21→12:06)
[2021-05-23] MEDS: Budesonide/Formoterol 80/4.5 1 PUFF INH IH SCH (07:47)
[2021-05-23] MEDS: hydrOXYzine pamoate 25 MG CAPSULE PO PRN (07:54)
[2021-05-23] MEDS: lisinopriL 5 MG TABLET PO SCH (07:54)
[2021-05-23] MEDS: Furosemide 40 MG TABLET PO SCH (07:54)
[2021-05-23] MEDS: Lactobacillus 1 EACH CAP.SPRINK PO SCH (07:54)
[2021-05-23] MEDS: Divalproex Sodium 125 MG Sprinkle Capsule (DR) PO SCH (07:54)
[2021-05-23] MEDS: QUEtiapine Fumarate 25 MG TABLET PO SCH (07:54)
[2021-05-23] MEDS: Divalproex (12 HR) 250 MG TABLET PO SCH (07:54)
[2021-05-23] MEDS: *HR* HYDROcodone/Acet 5/325 mg TABLET PO PRN (07:54)
[2021-05-23] MEDS: Lactulose Oral Soln 20 GM/30 ML UDC PO SCH (07:55)
[2021-05-23] MEDS: amLODIPine 5 MG TABLET PO SCH (07:55)
[2021-05-23] MEDS: Sulfacetamide Sodium 10% OPTH 15 ML BOTTLE RIGHT EYE SCH (07:55)
[2021-05-23] MEDS: Topiramate 25 MG TABLET PO SCH (07:55)
[2021-05-23] MEDS: Gabapentin 300 MG CAPSULE PO SCH (07:55)
[2021-05-23] MEDS: Eucerin Cream 57 GM TUBE TP SCH (07:56)
[2021-05-23] MEDS: Sulfacetamide Sodium 10% OPTH 15 ML BOTTLE LEFT EYE SCH (07:56)
[2021-05-23 09:27] LABS: Adenovirus Not Detected (Not Detect); Bordetella Pertussis Not Detected (Not Detect); Chlamydophila pneumoniae Not Detected (Not Detect); Coronavirus 229E Not Detected (Not Detect); Coronavirus HKU1 Not Detected (Not Detect); Coronavirus NL63 Not Detected (Not Detect); Coronavirus OC43 Not Detected (Not Detect); Human Metapneumovirus Not Detected (Not Detect); Human Rhinovirus/Enterovirus Not Detected (Not Detect); Influenza A Subtype 2009 H1 Not Detected (Not Detect); Influenza B Not Detected (Not Detect); Mycoplasma pneumoniae Not Detected (Not Detect); Parainfluenza Virus 1 Not Detected (Not Detect); Parainfluenza Virus 2 Not Detected (Not Detect); Parainfluenza Virus 3 Not Detected (Not Detect); Parainfluenza Virus 4 Not Detected (Not Detect); Respiratory Syncytial Virus Not Detected (Not Detect); SARS-CoV-2 Not Detected (Not Detect)
== END 2021-05-23 13:00 | DRG 432 ==
LOC: 3NENU 11:42 → EMEROOARM 11:42 → 2NNU 18:03 → SUATTDRO 05-20 15:05 → 3ANU 05-22 15:48
PROVIDERS: ADMIT Internal Medicine; ATTEND Pharmacist

== ENCOUNTER 2021-08-02 16:13 | Inpatient (IN) ==
[2021-08-02 16:51] LABS: Hemoglobin 12.8 g/dL (12.9-16.9)
[2021-08-02 16:52] LABS: Hematocrit 44.5 % (37.5-50.1); Mean Corpuscular HGB Conc 28.8 g/dL (31.6-35.5); Mean Corpuscular Hemoglobin 28.4 pg (28.0-33.3); Mean Corpuscular Volume 98.7 fL (83.0-100.0); Mean Platelet Volume 9.1 fL (9.4-12.4); Platelet Count 147 K/mcL (140-400); Red Blood Count 4.51 M/mcL (4.19-5.50); Red Cell Distribution Width 13.2 % (11.5-14.5); White Blood Count 7.9 K/mcL (4.3-11.1)
[2021-08-02 16:56] LABS: ABG Base Excess 13 mEq/L (-2 to 3); ABG HCO3 48 mEq/L (21-27); ABG Oxygen Saturation 79 % (95-98); ABG PCO2 119 mmHg (35-45); ABG PH 7.21 pH Units (7.32-7.45); ABG PO2 57 mmHg (85-104); ABG TCO2 > 50 mEq/L (20-26)
[2021-08-02 17:13] LABS: BUN/Creatinine Ratio 21 (6-26); Blood Urea Nitrogen 13 mg/dL (6-20); Calcium 8.5 mg/dL (8.6-10.3); Carbon Dioxide 45 mEq/L (23-29); Chloride 96 mEq/L (98-107); Glucose 126 mg/dL (70-105); Osmolality,Calculated 296 (280-300); Potassium 4.1 mEq/L (3.5-5.1); Sodium 142 mEq/L (136-145); Troponin I < 0.03 ng/mL (< 0.04); eGFR For African Americans > 60 (> 60); eGFR For Non-African Americans > 60 (> 60)
[2021-08-02 17:26] LABS: Hypochromasia Present (Not Present); Lymphocytes # 1.1 K/mcL (0.6-4.6); Neutrophils # 6.8 K/mcL (1.6-8.9); Platelet Estimate Normal (Normal)
[2021-08-02 17:27] LABS: Stomatocytes 2+ (Not Present)
[2021-08-02 17:28] LABS: Polychromasia 1+ (Not Present)
[2021-08-02] MEDS ORDERED: methylPREDNISolone 125 MG/2 ML VIAL IVP ONE (18:48)
[2021-08-02] MEDS ORDERED: Lactulose Oral Soln 20 GM/30 ML UDC PO ONE (18:48)
[2021-08-02] MEDS ORDERED: Naloxone 0.4 MG/ML INJ IVP PRN (19:24)
[2021-08-02] MEDS ORDERED: Ondansetron 4 MG/2 ML VIAL IVP PRN (19:24)
[2021-08-02] MEDS ORDERED: Dextrose 4 GM Chewable Tablets PO PRN ×2 (20:28)
[2021-08-02] MEDS ORDERED: *HR* Dextrose 50 % in Water (Syg) 50 ML SYRINGE IVP PRN (20:28)
[2021-08-02] MEDS ORDERED: D5% in Water 1,000 ML IVC PRN (20:28)
[2021-08-02 20:33] LABS: Influenza A PCR Negative (Negative); Influenza B PCR Negative (Negative); Resp. Syncytial Virus PCR Negative (Negative)
[2021-08-02 20:34] LABS: SARS-CoV-2 by PCR (In House) Negative (Negative)
[2021-08-02] MEDS: Lactulose Oral Soln 20 GM/30 ML UDC PO SCH (22:02)
[2021-08-02 22:17] LABS: ABG Base Excess 14 mEq/L (-2 to 3); ABG HCO3 47 mEq/L (21-27); ABG Oxygen Saturation 85 % (95-98); ABG PCO2 111 mmHg (35-45); ABG PH 7.24 pH Units (7.32-7.45); ABG PO2 65 mmHg (85-104); ABG TCO2 > 50 mEq/L (20-26); Blood Gas Modality avaps; Blood Gas VT 500 cc
[2021-08-02] MEDS ORDERED: Furosemide 20 MG/2 ML VIAL IVP ONE (23:07)
[2021-08-03 00:34] LABS: ABG Base Excess 15 mEq/L (-2 to 3); ABG HCO3 50 mEq/L (21-27); ABG Oxygen Saturation 98 % (95-98); ABG PCO2 116 mmHg (35-45); ABG PH 7.24 pH Units (7.32-7.45); ABG PO2 144 mmHg (85-104); ABG TCO2 > 50 mEq/L (20-26); Blood Gas Modality avaps; Blood Gas VT 550 cc
[2021-08-03] MEDS: Insulin LISPRO 300 UNITS/3 ML VIAL SUBQ SCH ×5 (01:10→23:44)
[2021-08-03 04:07] LABS: ABG Base Excess 14 mEq/L (-2 to 3); ABG HCO3 47 mEq/L (21-27); ABG Oxygen Saturation 97 % (95-98); ABG PCO2 99 mmHg (35-45); ABG PH 7.28 pH Units (7.32-7.45); ABG PO2 113 mmHg (85-104); ABG TCO2 > 50 mEq/L (20-26)
[2021-08-03 04:52] LABS: Hematocrit 45.8 % (37.5-50.1); Hemoglobin 13.3 g/dL (12.9-16.9); Mean Corpuscular Hemoglobin 27.8 pg (28.0-33.3); Mean Corpuscular Volume 95.8 fL (83.0-100.0); Mean Platelet Volume 9.2 fL (9.4-12.4); Platelet Count 151 K/mcL (140-400); Red Blood Count 4.78 M/mcL (4.19-5.50); Red Cell Distribution Width 13.4 % (11.5-14.5); White Blood Count 7.2 K/mcL (4.3-11.1)
[2021-08-03 05:18] LABS: BUN/Creatinine Ratio 29 (6-26); Blood Urea Nitrogen 18 mg/dL (6-20); Calcium 8.8 mg/dL (8.6-10.3); Carbon Dioxide 44 mEq/L (23-29); Chloride 95 mEq/L (98-107); Glucose 141 mg/dL (70-105); Osmolality,Calculated 296 (280-300); Potassium 4.4 mEq/L (3.5-5.1); Sodium 141 mEq/L (136-145); eGFR For African Americans > 60 (> 60); eGFR For Non-African Americans > 60 (> 60)
[2021-08-03] MEDS: Divalproex Sodium 125 MG Sprinkle Capsule (DR) PO SCH ×2 (07:53→20:43)
[2021-08-03] MEDS: lisinopriL 5 MG TABLET PO SCH (07:53)
[2021-08-03] MEDS: Lactulose Oral Soln 20 GM/30 ML UDC PO SCH ×3 (07:54→19:23)
[2021-08-03] MEDS ORDERED: Lactulose Oral Soln 20 GM/30 ML UDC PO SCH (09:00)
[2021-08-03] MEDS: Topiramate 100 MG TABLET PO SCH ×2 (11:55→20:44)
[2021-08-03] MEDS: Furosemide 40 MG TABLET PO SCH (11:55)
[2021-08-03] MEDS: Gabapentin 300 MG CAPSULE PO SCH ×2 (17:41→20:45)
[2021-08-03] MEDS: Budesonide/Formoterol 80/4.5 1 PUFF INH IH SCH (20:23)
[2021-08-03] MEDS: QUEtiapine Fumarate 25 MG TABLET PO SCH (20:44)
[2021-08-03] MEDS ORDERED: Melatonin 3 MG TABLET PO SCH (21:00)
[2021-08-04 05:31] LABS: VBG Ionized Calcium 1.06 mmol/L (1.15-1.35)
[2021-08-04 05:54] LABS: BUN/Creatinine Ratio 30 (6-26); Blood Urea Nitrogen 21 mg/dL (6-20); Calcium 8.3 mg/dL (8.6-10.3); Carbon Dioxide 42 mEq/L (23-29); Chloride 96 mEq/L (98-107); Glucose 104 mg/dL (70-105); Osmolality,Calculated 295 (280-300); Potassium 3.5 mEq/L (3.5-5.1); Sodium 141 mEq/L (136-145); eGFR For African Americans > 60 (> 60); eGFR For Non-African Americans > 60 (> 60)
[2021-08-04] MEDS: Insulin LISPRO 300 UNITS/3 ML VIAL SUBQ SCH (06:18)
[2021-08-04 06:52] VITALS: TEMP 97.8
[2021-08-04] MEDS: Budesonide/Formoterol 80/4.5 1 PUFF INH IH SCH (07:50)
[2021-08-04] MEDS: Divalproex Sodium 125 MG Sprinkle Capsule (DR) PO SCH (08:09)
[2021-08-04] MEDS: Gabapentin 300 MG CAPSULE PO SCH (08:09)
[2021-08-04] MEDS: QUEtiapine Fumarate 25 MG TABLET PO SCH (08:09)
[2021-08-04] MEDS: Topiramate 100 MG TABLET PO SCH (08:10)
[2021-08-04] MEDS: lisinopriL 5 MG TABLET PO SCH (08:10)
[2021-08-04] MEDS: Furosemide 40 MG TABLET PO SCH (08:10)
[2021-08-04] MEDS: Lactulose Oral Soln 20 GM/30 ML UDC PO SCH (08:12)
[2021-08-04] MEDS ORDERED: amLODIPine 5 MG TABLET PO SCH (09:00)
[2021-08-04] MEDS ORDERED: Lactobacillus 1 EACH CAP.SPRINK PO SCH (09:00)
[2021-08-04 10:11] VITALS: BP 121/42; PULSE 46; O2SAT 92
[2021-08-06 03:15] LABS: Valproate Free <7 ug/mL (7-23); Valproate Total 33 ug/mL (50-125)
== END 2021-08-04 12:35 | DRG 189 ==
LOC: EMEROOARM 16:13 → 2NNU 16:13 → OBSVTOIN 19:48 → 2NNU 21:10
PROVIDERS: ADMIT Internal Medicine; ATTEND Internal Medicine